=== PATIENT | female | born 2000 | race African-American/Black ===

== ENCOUNTER 2025-04-18 16:51 | Observation (INO) | payer OTHER, SELFPAY ==
[2025-04-18] VITALS (16 sets, daily range): BP systolic 110–111; BP diastolic 52–62; PULSE 80–122; O2SAT 98–100; BMI 32.5
--- OUTSIDE RECORDS SUMMARY | 2025-04-18 17:02 | XMS_ITS | Clinical Summary ---
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 Name Role Phone Chanel Gee DO Primary Care Provider [phone] Allergies No known active allergies Medications ondansetron (ZOFRAN) 4 mg tabletIndicatio ns:Nausea Take 1 tablet (4 mg total) by mouth every 8 (eight) hours as needed for nausea or vomiting 20 tablet 02/03/2025 Active PNV no.153/FA/om3/d hernandez/epa/fish ( GUMMIES ORAL) Take by mouth Ac tive prochlorperazin e (COMPAZINE) 5 mg tabletIndicatio ns:Nausea and Vomiting Take 1 tablet (5 mg total) by mouth every 8 (eight) hours 63 tablet 2 02/14/2025 Active vitamin ferrous fumarate-folic () 28 mg iron- 800 mcg tablet Take 1 tablet by mouth daily 30 tablet 11 03/18/2025 03/18/20 26 Active Active Problems Problem Noted Date Diagnosed Date Hyperlipidemia 12/31/2024 Insomnia due to other mental disorder 05/25/2023 Assessment & Plan (08/28/2024 8:13 AM CDT): Uncontrolled, possibly related to untreated anxiety and depression Declined medication, counseling, and/or referral to specialist for treatment of anxiety and depression Informed can take OTC melatonin or ashwagandha for sleep/anxiety Assessment & Plan (05/25/2023 8:12 AM AEROSPACE QUALITY ENGINEER): Chronicity and stability unknown, likely related to untreated anxiety and depression Encouraged to start sertraline prescribed at last visit for anxiety and depression Informed can also take melatonin 1-2 mg 1 hour prior to bedtime to facilitate sleep Polycystic ovary syndrome 03/27/2023 Prediabetes 02/24/2023 Overview (12/17/2024): A1C 5.7 on 02/23/2023 Moderate major depression, single episode 2022 Assessment & Plan (08/28/2024 7:25 AM CDT): Chronic, uncontrolled, previously prescribed sertraline, however never filled prescription Patient's PHQ-9 was 13, now 19 Discussed treatment options with patient that included counseling, medication/medication adjustment, and/or referral to psychiatry and/or psychology Declined counseling, medication, and referral to specialist/s Advised if suicidal ideation or thoughts of harming self or others, to go to ER and/or call [phone] for assistance Assessment & Plan (11/01/2023 12:46 PM CDT): Chronic, uncontrolled, previously prescribed sertraline, however never filled prescription Reviewed last PHQ-9=13 New prescription for sertraline 50 mg daily sent to pharmacy per request Advised if suicidal ideation or thoughts of harming self or others, to go to ER and/or call [phone] for assistance Assessment & Plan (05/25/2023 8:13 AM AEROSPACE QUALITY ENGINEER): Chronic, uncontrolled, improved PHQ-9 score, but has had suicidal thoughts since last seen, denies currently, did not start medication prescribed at last visit PHQ-9=13 , LILLY-7=21, previously 18 & 16 respectively Recommended starting sertraline, previously prescribed Encouraged to continue therapy Advised if suicidal ideation or thoughts of harming self or others, to go to ER and/or call [phone] for assistance, agreed to contract for safety Assessment & Plan (04/12/2023 4:59 AM AEROSPACE QUALITY ENGINEER): Chronic, stable, uncontrolled Reviewed PHQ-9=18 Recommended starting sertraline as previously recommended Advised if suicidal ideation or thoughts of harming self or others, to go to ER and/or call [phone] for assistance Recommended follow-up in 4 weeks, sooner if needed Assessment & Plan (03/14/2023 10:45 AM AEROSPACE QUALITY ENGINEER): Chronic, stable, uncontrolled, no on medications Started on sertraline 50 mg once daily Encouraged to pursue counseling through school, has appointment next week Advised if suicidal ideation or thoughts of harming self or others, to go to ER and/or call [phone] for assistance, agreed to contract for safety Assessment & Plan (02/15/2023 5:23 AM CDT): Chronicity and stability unknown, uncontrolled Reviewed PHQ-7=20 Discussed treatment options with patient that included counseling, medication/medication adjustment, and/or referral to psychiatry and/or psychology, not interested in medication at this time Recommended calling insurance for preferred providers covered under plan Advised if suicidal ideation or thoughts of harming self or others, to go to ER and/or call [phone] for assistance, agreed to contract for safety. LILLY (generalized anxiety disorder) 02/14/2023 Assessment & Plan (08/28/2024 7:27 AM CDT): Chronic, uncontrolled, previously prescribed sertraline, however never filled prescription Reviewed LILLY-7=18, previously 18 Discussed treatment options with patient that included counseling, medication/medication adjustment, and/or referral to psychiatry and/or psychology Assessment & Plan (11/01/2023 12:47 PM CDT): Chronic, uncontrolled, previously prescribed sertraline, however never filled prescription New prescription for sertraline 50 mg daily sent to pharmacy per request Assessment & Plan (05/25/2023 7:54 AM AEROSPACE QUALITY ENGINEER): Chronic, uncontrolled, worsened, did not start medication prescribed at last visit PHQ-9=13 , LILLY-7=21, previously 18 & 16 respectively Recommended starting sertraline, previously prescribed Encouraged to continue therapy Assessment & Plan (04/12/2023 5:00 AM AEROSPACE QUALITY ENGINEER): Chronic, stable, uncontrolled Reviewed LILLY-7=16 Recommended starting sertraline as previously recommended Recommended follow-up in 4 weeks, sooner if needed Assessment & Plan (03/14/2023 10:42 AM AEROSPACE QUALITY ENGINEER): Chronic, stable, uncontrolled, no on medications Started on sertraline 50 mg once daily Encouraged to pursue counseling through school, has appointment next week Assessment & Plan (02/15/2023 5:22 AM CDT): Chronicity and stability unknown Reviewed PHQ-7=19 Discussed treatment options with patient that included counseling, medication/medication adjustment, and/or referral to psychiatry and/or psychology, not interested in medication at this time Recommended calling insurance for preferred providers covered under plan Obesity (BMI 30-39.9) 11/03/2021 Assessment & Plan (12/17/2024 2:37 PM CDT): >>ASSESSMENT AND PLAN FOR CLASS 1 OBESITY DUE TO EXCESS CALORIES WITHOUT SERIOUS COMORBIDITY WITH BODY MASS INDEX (BMI) OF 34.0 TO 34.9 IN ADULT WRITTEN ON 11/01/2023 12:49 PM BY JOSEMANUEL MCGILL NP Chronic, worsened Encouraged to: Make healthy food choices, limiting intake of concentrated sweets, cholesterol, and saturated fat Monitor daily caloric intake and portion sizes Exercise most days of the week for a goal of at least 150 minutes of exercise per week Assessment & Plan (12/17/2024 2:37 PM CDT): >>ASSESSMENT AND PLAN FOR CLASS 1 OBESITY DUE TO EXCESS CALORIES WITHOUT SERIOUS COMORBIDITY WITH BODY MASS INDEX (BMI) OF 34.0 TO 34.9 IN ADULT WRITTEN ON 11/23/2023 8:13 AM BY JOSEMANUEL MCGILL NP Chronic,stable Encouraged to: Make healthy food choices, limiting intake of concentrated sweets, cholesterol, and saturated fat Monitor daily caloric intake and portion sizes Exercise most days of the week for a goal of at least 150 minutes of exercise per week Assessment & Plan (12/17/2024 2:37 PM CDT): >>ASSESSMENT AND PLAN FOR CLASS 1 OBESITY DUE TO EXCESS CALORIES WITHOUT SERIOUS COMORBIDITY WITH BODY MASS INDEX (BMI) OF 34.0 TO 34.9 IN ADULT WRITTEN ON 08/28/2024 8:13 AM BY JOSEMANUEL MCGILL NP Worsened Encouraged to: Make healthy food choices, limiting intake of concentrated sweets, cholesterol, and saturated fat Monitor daily caloric intake and portion sizes Exercise most days of the week for a goal of at least 150 minutes of exercise per week Assessment & Plan (11/03/2021 3:46 PM CDT): Obesity is unchanged. Discussed the patient's BMI. The BMI is above average. BMI management plan is completed. BMI Follow-up includes: nutrition counseling, exercise counseling and education provided. Estimated Date of Delivery Comme nts Yes 08/31/2025 Based on Ultraso und Resolved Problems Problem Noted Date Diagnosed Date Resolved Date Nausea 08/28/2024 12/17/2024 Assessment & Plan (08/28/2024 8:15 AM CDT): New problem, uncontrolled, states a possibility, however not laid on menses Will check serum HCG Started on Pepcid 20 mg twice daily Heartburn 08/28/2024 12/17/2024 Assessment & Plan (08/28/2024 8:15 AM CDT): New problem with uncontrolled symptoms Started on Pepcid 20 mg twice daily Epigastric pain 08/28/2024 12/17/2024 Assessment & Plan (08/28/2024 8:15 AM CDT): New problem with uncontrolled symptoms Started on Pepcid 20 mg twice daily Elevated blood sugar 03/14/2023 025 Assessment & Plan (08/28/2024 8:11 AM CDT): Uncontrolled, prescribed metformin by funeral home director, unclear for PCOS or elevated blood sugar or both, no longer taking Will monitor for stability Assessment & Plan (11/01/2023 12:48 PM CDT): Chronicity, stability unknown, prescribed metformin by funeral home director, previously on metformin, not taking Will monitor for stability Assessment & Plan (03/14/2023 10:48 AM AEROSPACE QUALITY ENGINEER): Chronicity, stability unknown, prescribed metformin by funeral home director Continued on metformin per gynecology Shortness of breath 02/15/2023 08/29/19 Assessment & Plan (03/14/2023 10:49 AM AEROSPACE QUALITY ENGINEER): Chronic, stable, controlled with albuterol MDI PRN Continued on albuterol MDI as directed as needed, instructed to keep track of use Assessment & Plan (02/15/2023 5:24 AM CDT): Chronic, stable, states occurs when sick or with exercise Started on albuterol MDI as directed as needed Referral made to pulmonology for further evaluation and management Dysfunctional uterine bleeding 02/15/2023 08/28/2024 Assessment & Plan (11/01/2023 12:48 PM CDT): Chronicity and stability unknown Continued on medroxyprogesterone prescribed by funeral home director Ordered labs for monitoring anemia/low iron Assessment & Plan (03/14/2023 10:41 AM AEROSPACE QUALITY ENGINEER): Recent onset, stability unknown Completed course of medroxyprogesterone prescribed by funeral home director Encourage to follow-up with funeral home director as recommended Assessment & Plan (02/15/2023 5:26 AM CDT): Recent onset, established with gynecology most recent exam morbidly over summer Encouraged to follow-up with funeral home director Need for vaccination 02/15/2023 025 Assessment & Plan (08/28/2024 8:10 AM CDT): Declined Gardasil and Bexsero vaccines Discussed screening/vaccination in depth and patient understands all risk and benefits associated with proposed therapies and currently declines, has been encouraged to call if changes mind. Iron deficiency anemia 02/15/202302/14 Assessment & Plan (12/17/2024 2:36 PM CDT): >>ASSESSMENT AND PLAN FOR ANEMIA WRITTEN ON 02/15/2023 5:28 AM BY JOSEMANUEL MCGILL NP Chronicity and stability unknown with mild anemia noted on review of lab work on 07/02/2022 (hemoglobin 11.8, normal hematocrit) Ordered CBC Assessment & Plan (12/17/2024 2:36 PM CDT): >>ASSESSMENT AND PLAN FOR IRON DEFICIENCY ANEMIA WRITTEN ON 08/28/2024 8:12 AM BY JOSEMANUEL MCGILL NP Uncontrolled, was on ferrous sulfate daily, no longer taking, dysfunctional bleeding addressed by Gynecology with Depo-Medrol and metformin for PCOS? No longer on Depo Medrol or taking metformin Will monitor for stability >>ASSESSMENT AND PLAN FOR ANEMIA WRITTEN ON 08/28/2024 8:12 AM BY JOSEMANUEL MCGILL NP Uncontrolled, was on ferrous sulfate daily, no longer taking, dysfunctional bleeding addressed by Gynecology with Depo-Medrol and metformin for PCOS? No longer on Depo Medrol or taking metformin Will monitor for stability Assessment & Plan (12/17/2024 2:36 PM CDT): >>ASSESSMENT AND PLAN FOR IRON DEFICIENCY ANEMIA WRITTEN ON 11/01/2023 12:47 PM BY JOSEMANUEL MCGILL NP Chronicity and stability unknown, previously on ferrous sulfate, has not been taking Will monitor for stability >>ASSESSMENT AND PLAN FOR ANEMIA WRITTEN ON 11/01/2023 12:49 PM BY JOSEMANUEL MCGILL NP Chronicity and stability, previously on ferrous sulfate Will monitor for stability Assessment & Plan (12/17/2024 2:36 PM CDT): >>ASSESSMENT AND PLAN FOR IRON DEFICIENCY ANEMIA WRITTEN ON 03/14/2023 1:41 PM BY JOSEMANUEL MCGILL NP Chronicity and stability unknown Continued on ferrous sulfate, most recent CBC (06/2022) with hemoglobin 11.8 >>ASSESSMENT AND PLAN FOR ANEMIA WRITTEN ON 03/14/2023 1:40 PM BY JOSEMANUEL MCGILL NP Chronicity and stability Continued on ferrous sulfate daily with a meal containing vitamin C Migraine without aura and wi thout status migrainosus, not intractable 02/14/2023 02/14/2025 Assessment & Plan (08/28/2024 8:09 AM CDT): Uncontrolled, prescribed Imitrex, did not help Continued on Imitrex as directed as needed, increased dose to 100 mg as directed, encouraged to use at first sign of migraine Reviewed common migraine triggers Assessment & Plan (03/14/2023 10:44 AM AEROSPACE QUALITY ENGINEER): Chronic, uncontrolled, prescribed Imitrex, has not had to use Continued on Imitrex as directed as needed Assessment & Plan (02/15/2023 5:23 AM CDT): Chronic, uncontrolled Started on Imitrex as directed as needed Encouraged to keep a headache log to help identify triggers, reviewed common triggers BMI 32.0-32.9,adult 07/22/2022 11/01/19 Assessment & Plan (05/25/2023 7:51 AM AEROSPACE QUALITY ENGINEER): Chronic, improved Encouraged to: Make healthy food choices, limiting intake of concentrated sweets, cholesterol, and saturated fat Monitor daily caloric intake and portion sizes Exercise most days of the week for a goal of at least 150 minutes of exercise per week Assessment & Plan (03/14/2023 10:39 AM AEROSPACE QUALITY ENGINEER): Chronic, stable Encouraged to monitor daily caloric intake and portion sizes and to exercise most days of the week, for a goal of at least 150 minutes of exercise per week Assessment & Plan (07/22/2022 8:02 AM CDT): Discussed the patient's BMI. The BMI is above average. BMI management plan is completed. BMI Follow-up includes: nutrition counseling, exercise counseling and education provided. Missed menses 07/22/2022 02/14/2023 Assessment & Plan (07/22/2022 10:54 PM CDT): Patient states she is 3 days late. UPT in the office was negative. Continue per education adviser Encounter for physical exami nation related to employment 07/22/2022 03/14/2023 Assessment & Plan (07/22/2022 10:54 PM CDT): Will complete form once tuberculosis/QuantiFERON gold labs are available. Form can be faxed a number that is provided BMI 32.0-32.9,adult 11/03/2021 07/23/19 23 Assessment & Plan (11/03/2021 3:46 PM CDT): Obesity is unchanged. Discussed the patient's BMI. The BMI is above average. BMI management plan is completed. BMI Follow-up includes: nutrition counseling, exercise counseling and education provided. Screening-pulmonary TB 11/03/202103/14 Assessment & Plan (07/22/2022 10:54 PM CDT): Discussed screening techniques including ppd versus QuantiFERON gold. She prefers the serum. Order provided Assessment & Plan (11/03/2021 10:04 PM CDT): QuantiFERON gold order provided. Will complete her form when this blood test is completed. Need for Tdap vaccination 11/03/2021 Assessment & Plan (11/03/2021 10:05 PM CDT): Updated in office today Annual physical exam 03/07/2021 08/2 025 Assessment & Plan (08/28/2024 7:45 AM CDT): Reviewed past and current medical history, surgical history, social history, family history, current medications, and allergies. The chart was updated to identify any changes in these areas. Assessment & Plan (03/14/2023 1:40 PM AEROSPACE QUALITY ENGINEER): Reviewed past and current medical history, surgical history, social history, family history, current medications, and allergies. The chart was updated to identify any changes in these areas. A ROS and PE were performed. Medications was presribed. Discussed well woman exam/cervical cancer screening, monthly breast self-exams, and recommended immunizations. Patient will follow-up in 4 weeks for further evaluation and management or sooner if needed. Assessment & Plan (11/03/2021 10:04 PM CDT): Encouraged healthy lifestyle, good nutrition and exercise. Encouraged Calcium and Vitamin D and weight bearing exercise for bone health. Reviewed immunizations Reviewed age appropirate screenings. Sore throat 02/04/2020 03/14/2023 Assessment & Plan (02/04/2020 2:49 PM CDT): Will order covid testing. Advised quarantining until results are available or symptoms resolve. Advised starting claritin every day and using tylenol q6h prn fever/body aches. Advised her to contact us in next 72h to let us know how she's feeling. We discussed scheduling annual physical when she is improved. Missed period 06/11/2019 02/14/2023 Assessment & Plan (06/11/2019 8:36 AM AEROSPACE QUALITY ENGINEER): test was negative, follow-up with PCP for further evaluation and management of menstrual cycle and to discuss control. Acute bronchitis due to othe r specified organisms 06/11/2019 08/28/2024 Assessment & Plan (11/23/2023 8:13 AM CDT): Ordered chest xray Supportive care measures discussed Strict return precautions given Assessment & Plan (06/11/2019 8:38 AM AEROSPACE QUALITY ENGINEER): Advised to use inhaler as directed as needed for symptoms of shortness of breath, wheezing, chest tightness, or coughing fits. Encouraged to sleep with head elevated at night and use a cool mist vaporizer. Advised can apply Vicks VapoRub and take Mucinex as directed as needed for cough. Acute non-recurrent pansinusitis 06/11/2019 02/14/2023 Assessment & Plan (06/11/2019 8:38 AM AEROSPACE QUALITY ENGINEER): Started on Omnicef 300 mg BID x 10 days and prednisone 20 mg BID x 5 days. Instructed to increase clear liquids, rest, and vitamin C in diet. Advised to go to ER if unable to keep medications or liquids down, if abdominal pain worsens, if having difficulty breathing, can't control fever, or develops new symptoms. Recommended follow-up with PCP if symptoms don't improve, worsen, or new symptoms develop and also to further discuss evaluation and management of menstrual cycle and control. Fever 06/11/2019 02/14/2023 Assessment & Plan (06/11/2019 8:30 AM AEROSPACE QUALITY ENGINEER): Rapid influenza test was negative, see treatment plan for acute bronchitis and acute non-recurrent pansinusitis. Cough 06/11/2019 03/14/2023 Assessment & Plan (02/15/2023 5:21 AM CDT): Chronic, stable, states occurs when sick or with exercise Started on albuterol MDI as directed as needed Referral made to pulmonology for further evaluation and management Assessment & Plan (02/04/2020 2:49 PM CDT): Will order covid testing. Advised quarantining until results are available or symptoms resolve. Advised starting claritin every day and using tylenol q6h prn fever/body aches. Advised her to contact us in next 72h to let us know how she's feeling. We discussed scheduling annual physical when she is improved. Assessment & Plan (06/11/2019 8:30 AM AEROSPACE QUALITY ENGINEER): Rapid influenza test was negative, see treatment plan for acute bronchitis and acute non-recurrent pansinusitis. PPD screening test 05/19/2019 Assessment & Plan (05/19/2019 8:14 PM AEROSPACE QUALITY ENGINEER): Placed in office today control counseling 05/19/201910/2024 Assessment & Plan (05/19/2019 8:13 PM AEROSPACE QUALITY ENGINEER): Reviewed with patient the control options including ocp, ring, patch, Nexplanon, DepoProvera, IUDs and condoms/barriers. Reviewed risks, benefits, alternatives, side effects and proper use. She is most interested in Nexplanon--will check benefits. Stressed condoms until the Nexplanon is placed which is when she is on her next period. Screening examination for ST D (sexually transmitted disease) 05/19/2019 12/17/2024 Assessment & Plan (05/19/2019 8:14 PM AEROSPACE QUALITY ENGINEER): Check labs Possible 05/19/2019 2 Assessment & Plan (05/19/2019 8:14 PM AEROSPACE QUALITY ENGINEER): UPT negative in office Physical exam, pre-employment 05/19/2019 08/28/2024 Assessment & Plan (11/01/2023 12:45 PM CDT): Physical performed and paperwork completed for pre-employment physical Assessment & Plan (05/19/2019 8:13 PM AEROSPACE QUALITY ENGINEER): Encouraged healthy lifestyle, good nutrition and exercise. Encouraged Calcium and Vitamin D and weight bearing exercise for bone health. Reviewed immunizations Reviewed age appropirate screenings. PPD placed. Will need to read in 48-72 hours. BMI 28.0-28.9,adult 01/15/2019 11/04/19 22 Assessment & Plan (05/19/2019 8:13 PM AEROSPACE QUALITY ENGINEER): Weight/BMI is in healthy range. Continue healthy lifestyle to maintain. Assessment & Plan (01/15/2019 7:37 AM CDT): Weight/BMI is in healthy range. Continue healthy lifestyle to maintain. Need for Menactra vaccination 01/15/2019 05/19/2019 Assessment & Plan (01/15/2019 8:43 PM CDT): Updated in office today. As per HPI encouraged and discussed Gardasil and they declined at this time. Documentation provided for her to take to school. Amenorrhea 12/04/2017 02/14/2023 Assessment & Plan (05/19/2019 8:12 PM AEROSPACE QUALITY ENGINEER): test negative. Recommend serum as getting STD test done. Other oysterman (current) drug therapy 02/05/2015 03/14/2023 Encounters Date Type Department Care Team Description 03/28/2025 Telephone [facility] [address] [place] [address] [address] [place] [phone] Chanel Gee DO Medical Records Request 03/28/2025 Telephone [facility] Medicine [address] [place] [address] [address] [place] [phone] Chanel Gee DO 03/18/2025 Orders Only [facility] Obstetrical Gynecology [address] [place] [phone] Nyla Watkins MD 03/13/2025 1:30 PM AEROSPACE QUALITY ENGINEER Office Visit [facility] Obstetrical Gynecology [address] [place] [phone] Roya Downing MD care, first , second trimester (Primary Dx) 02/15/2025 Results Follow-Up [facility] Obstetrical Gynecology [address] [place] [phone] Nyla Watkins MD Drugs of Abuse Screen, Urine with Reflex Confirmation, Trichomonas vaginalis PCR Urine, N. gonorrhoeae/C. trachomatis Amplification Urine, Additional followed-up results: 14 02/14/2025 11:19 AM CDT - 02/14/2025 11:59 PM CDT Hospital Encounter [facility] [address] [address] Encounter for supervision of normal in first trimester, unspecified Discharge Disposition: Discharge to home or self care 02/14/2025 11:15 AM CDT Lab [facility] [address] [address] Encounter for supervision of normal in first trimester, unspecified 02/14/2025 11:00 AM CDT Office Visit [facility] Obstetrical Gynecology [address] [place] [phone] Nyla Watkins MD Encounter for supervision of normal in first trimester, unspecified (Primary Dx); Obesity (BMI 30-39.9); Obesity affecting in first trimester, unspecified obesity type; History of anxiety 02/14/2025 10:15 AM CDT Clinical Support [facility] Obstetrical Gynecology [address] [place] [address] [place] [phone] 02/14/2025 9:30 AM CDT Ancillary Procedure [facility] Obstetrical Gynecology [address] [place] [phone] Establish gestational age, ultrasound 02/14/2025 Telephone [facility] Obstetrical Gynecology [address] [place] [address] [place] [phone] Quinn Parikh MD 02/05/2025 Telephone [facility] Medicine [address] [place] [address] [place] [phone] Chanel Gee DO Medical Question/Miscellaneou s 02/04/2025 2:15 PM CDT Office Visit [facility] Medicine [address] [place] [address] [place] [phone] Chanel Gee DO 10 weeks gestation of (Primary Dx); Nausea 01/31/2025 Orders Only [facility] Obstetrical Gynecology [address] [place] [address] [place] [phone] Nyla Watkins MD Establish gestational age, ultrasound (Primary Dx) 01/31/2025 Telephone [facility] Obstetrical Gynecology [address] [place] [phone] Quinn Parikh MD 01/31/2025 Telephone [facility] Medicine [address] [place] [address] [place] [phone] Chanel Gee DO Symptom Based Call 01/30/2025 Telephone [facility] Virtual Care [address] [place] [phone] Zee No virtual care appointment 01/30/2025 Nurse Triage [address] [place] [phone] Chanel Gee, from Last 3 Months Immunizations Immunization Administration Dates Next Due DTaP 12/15/2006, 5,2001,08/17,2001 Hep B, Unspecified 04/07/2002,2001, 002 HiB 07/10/2004, 2,2001,08/17 IPV 07/15/2006, 2,2001,06/12 Influenza, Quadrivalent, Spl it, Preservative Free, Intramuscular 02/14/2023 Influenza, Unspecified 01/29/2024(Deferr ed: Patient decision),01/23/2024(Deferred: Patient Refused),05/25/2022(Deferred: Patient Refused),01/22/2022(Deferred: Patient Refused),05/25/2021(Deferred: Patient Refused) MMR 07/15/2006,04/07/2002 Meningococcal MCV4P (Menactra) 01/15/2019,2012 PPD TEST 11/01/2023,05/13/2019 Pneumococcal Conjugate 7-Valent 07/10/2004 Tdap 11/03/2021,12/22/2012 Varicella 02/04/2016,04/07/2002 Medical History Medical History Date Comments Headache Depression Anxiety Family History Medical History Relation Name Comments No Known Problems Father Headache Mother Heart disease Mother Diabetes Paternal Grandfather Heart disease Paternal Grandfather Breast cancer Neg Hx Colon cancer Neg Hx Ovarian cancer Neg Hx Uterine cancer Neg Hx Relation Name Status Comments Father Alive Mother Alive Paternal Grandfather Social History Tobacco Use Types Packs/Day Years Used Date Smoking Tobacco: Never Smokeless Tobacco: Never Tobacco Cessation:Counseling Given: Not Answered Alcohol Use Standard Drinks/Week Comments Never 0 (1 standard drink = 0.6 oz pur e alcohol) AUDIT-C Answer Date Recorded Q1: How often do you have a drink containing alc ohol? Never 08/28/2024 Average Number of Drinks Not on file 025 Frequency of Binge Drinking Not on file 10/2024 PHQ-2 Answer Date Recorded PHQ-2 Total Score (If total score is 3 or more points, staff should administer the PHQ-9) 2 02/04/2025 PHQ-9 Answer Date Recorded PHQ-9 Total Score 4 02/04/2025 [place] Depression Scale Answer Date Recorded [place] Depression Scale Total 8 02/14/2025 The thought of harming myself has occurred to me . Never 02/14/2025 Personal Safety Answer Date Recorded Have you ever been in or are you currently in a harmful physical or emotional relationship or is someone making you feel afraid or unsafe? 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 Gender Identity Not on file Sexual Orientation Not on file Obstetrics History Para Term AB IAB SAB Ectopic Multiple Livin g Live Births 1 Date Outcome GA Total Labor Labor/2nd/3rd Weight Sex Type Anes PTL Marija A1 A5 Name Clin Current Summary Episode Dates Number of Fetuses Estimated Date of Delivery 02/14/2025 - Present (04/18/2025) 1 08/31/2025 (set by Samantha Rivera RN on 02/14/2025 based on Ultrasound on 02/14/2025) Dating Summary Based On VIVIAN [place] Diff Last Menstrual Period on 11/11/2024 (LMP Unknown ) Ultrasound on 02/14/2025 08/31/2025 Working GA:11w5d Overview and Plan :Amaro Support person:Darryl tom Delivery Plans Planned delivery method:Vaginal Overview Surveillance of EDC by 11 week US Labs O+/ -/-/-/HIV NR Measles and chicken pox non immune - needs MMR and varivax Genetics: NIPT LR Anatomy: 20 weeks GCT: 26-28 weeks 3rd trim CBC/HIV/RPR Tdap: 27+ weeks GBS: 36 weeks, or sooner if early delivery indicated COVID Vaccine: declined Social Barriers: none Mode of feeding: Method of contraception: Delivery Planning: TBD Vitals Pregravid Weight Height TWG (As of 04/18/2025) Pregrav id BMI 77.6 kg (171 lb) 160 cm (5' 3) 1.27 kg (2 lb 12.8 oz) 30.30 Notes Progress Notes - Office Visi t - 03/13/2025 - GA:15w4d 03/13/2025 - w4d - Roya Downing MD Return OB Visit 24 y.o. at 15w4d here for COLLEEN. Patient denies specific questions or concerns. Nausea improved. Denies cramping/vb/lof. Objective BP 124/76 (BP Location: Left arm, Patient Position: Sitting) Pulse 115 Ht 160 cm (5' 3) Wt 173 lb 12.8 oz (78.8 kg) LMP (LMP Unknown) SpO2 98% BMI 30.79 kg/m Body mass index is 30.79 kg/m . 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 Datinst T US (11 wk) Labs: O+/-, AA, 13.5/41>196, A1c 5.6%, HIV/HBV/HCV/RPR NR, UCx Neg, GC/CT/Trich neg, UDS neg, RI, Varicella/Measles NI, recommend pp vaccination Genetics: NIPT LR, XX Anatomy: Placenta: GCT: 3T labs: Tdap: GBS: COVID Vaccine Flu vaccine Social Barriers: Method of feeding: Method of contraception: Delivery Planning: to be discussed Pain management: Support: BMI 30: HgbA1c, reviewed increased risk for PreE, recommend dASA History of depression and anxiety: on medication last year, stopped as she has been feeling better IOB EPDS 8, GAD7 6 Nausea and vomiting in Recommend B6, unisom, scheduled compazine, PRN pepcid and PRN zofran RTC in 4 wks Roya Downing MD SPACE QUALITY ENGINEER Progress Notes - Clinical Ferrera pport - 02/14/2025 - GA:wd 02/14/2025 - d - Samantha Alvarez RN Pt c/o N/V, has little relief with Zofran. Dating US in office today, VIVIAN reviewed with pt. Pap UTD; STI urine sent to lab. PNL and NIPT ordered. OB call schedule and NOB packet reviewed, all questions answered. EPDS and GAD7 completed in office today. Progress Notes - Office Visi t - 02/14/2025 - GA:11w5d 02/14/2025 - wd - Latoya Watkins MD Initial OB Visit Date of Visit: 02/14/2025 10:37 AM Selene Huerta is a 24 y.o. at 11w5d by [facility] T who desires establishment of care for her . Her is currently complicated by: #BMI 30 #PCOS: does not know when this was diagnosed, was skipping some cycles, most recent HgbA1c 5.6% #HLD #Depression, LILLY, insomnia: has been on medication in the past, was on this in August 2023 #History of migraines: has not had them in a while Morning sickness? yes, both nausea and vomiting - vomiting 1-2 times per day - takes zofran every 8 hours or as needed - reports constipation Vaginal bleeding? no Planned ? no Desired ? yes Taking ? yes Taking other meds not yet cleared by OB? none Cats in household? no Occupation? Unemployed Dating: No LMP recorded (lmp unknown). Patient is . US Date: 02/14, Gest Age 11w5d => VIVIAN 08/31/2025 Obstetric History: OB History Para Term AB Living 1 SAB IAB Ectopic Multiple Live Births # Outcome Date GA Lbr Chema/2nd Weight Sex Type Anes PTL Lv 1 Current Genetic History: Screening negative [-] Mother's Age > 34 years [-] Sickle Cell Disease or Trait () [-] Thalasemia (Tajik, Belarusian, Medit or ; MCV <80) [-] Loco Sachs Disease (Episcopalian, Cajun, Spanish Surinamese) [-] Down's Syndrome [-] Neural Tube Defects (Meningomyelocele, Spina Bifida or Anencephaly) [-] Other Developmental Delay [-] Cystic Fibrosis [-] Hannah's Chorea [-] Muscular Dystrophy [-] Hemophilia [-] Other Heritable condition Medical History: Past Medical History: Diagnosis Date Anxiety Depression Headache No Known Allergies Surgical History: History reviewed. No pertinent surgical history. Family History: Family History Problem Relation Age of Onset Diabetes Paternal Grandfather Heart disease Paternal Grandfather No Known Problems Father Headache Mother Heart disease Mother Breast cancer Neg Hx Colon cancer Neg Hx Ovarian cancer Neg Hx Uterine cancer Neg Hx Social History: No drug, alcohol or tobacco use Physical Exam: Vitals:BP 114/78 Wt 171 lb (77.6 kg) LMP (LMP Unknown) BMI 30.29 kg/m General: Well appearing, pleasant female in NAD Lungs: Normal work of breathing Abdomen: soft, non-tender Extremities: Warm and well perfused Pelvic: declined Assessment and Plan: - has three RF for PreE, recommend dASA at 12 weeks - reviewed approach to managing n/v in - reviewed increased risk of depression/anxiety in Surveillance of Datinst T US (11 wk) Labs: ordered Genetics: ordered Anatomy: Placenta: GCT: 26-28 weeks 3T labs: Tdap: 27+ weeks GBS: 36 weeks, or sooner if early delivery indicated COVID Vaccine Flu vaccine Social Barriers: Method of feeding: Method of contraception: Delivery Planning: to be discussed Pain management: Support: BMI 30: HgbA1c, reviewed increased risk for PreE, recommend dASA History of depression and anxiety: on medication last year, stopped as she has been feeling better IOB EPDS 8, GAD7 6 Nausea and vomiting in Recommend B6, unisom, scheduled compazine, PRN pepcid and PRN zofran SAB precautions reviewed. RTC in 4 weeks Nyla Watkins MD Last Filed Vital Signs Vital Sign Reading Time Taken Comments Blood Pressure 124/76 03/13/2025 1:35 PM AEROSPACE QUALITY ENGINEER Pulse 115 03/13/2025 1:35 PM AEROSPACE QUALITY ENGINEER Temperature 36.2 C (97.2 F) 02/04/2025 2:58 PM CDT Respiratory Rate 17 11/10/2024 12:4 9 PM CDT Oxygen Saturation 98% 03/13/2025 1:35 PM AEROSPACE QUALITY ENGINEER Inhaled Oxygen Concentration - - Weight 78.8 kg (173 lb 12.8 oz) 03/13/2025 1:35 PM AEROSPACE QUALITY ENGINEER Height 160 cm (5' 3) 03/13/2025 1:35 PM AEROSPACE QUALITY ENGINEER Body Mass Index 30.79 03/13/2025 1:35 PM AEROSPACE QUALITY ENGINEER Plan of Treatment Health Maintenance Due Date Last Done Comments HPV Vaccines (1 - 3-dose series) 2016 Influenza Vaccine (#1) 2024 02/14/2023 Regular Well Visit/Exam 18-64 08/28/2025, 03/14/2023, 11/03/2021, Additional history exists Cervical Cancer Screening 10/12/2025 10/12/2022 Chlamydia and Gonorrhea (GC/ CT) Screening 02/14/2026 02/14/2025, 07/02/2022, 12/05/2017 Depression Screening 02/14/2026 02/14/2025, 02/04/2025, 12/31/2024, Additional history exists DTaP/Tdap/Td Vaccine (8 - Td or Tdap) 11/04/2031 11/03/2021, 12/22/2012, 12/15/2006, Additional history exists Hepatitis B Screening Completed 04/07/2002 , 2001, 2001 Pneumococcal vaccine <65 Completed 07/10/2004 Varicella Vaccines Completed 02/04/2016, 04/07/2002 Hepatitis C Screening Completed 02/14/2025, 025 Procedures Procedure Name Priority Date/Time Associated Diagnosis Comments PANORAMA TEST Routine 2:01 PM CDT Encounter for supervision of normal in first trimester, unspecified BLOOD SMEAR REVIEW Routine 02/14/2025 11:33 AM CDT Encounter for supervision of normal in first trimester, unspecified ANTIBODY SCREEN Routine 02/14/2025 11:33 AM CDT Encounter for supervision of normal in first trimester, unspecified ABO/RH Routine 02/14/2025 11:33 AM CDT Encounter for supervision of normal in first trimester, unspecified HEMOGLOBIN ANALYSIS BY ELECTROPHORESIS Routine 02/14/2025 11:33 AM CDT Encounter for supervision of normal in first trimester, unspecified TYPE AND SCREEN Routine 02/14/2025 11:33 AM CDT Encounter for supervision of normal in first trimester, unspecified HEMOGLOBIN A1C Routine 02/14/2025 11:33 AM CDT Encounter for supervision of normal in first trimester, unspecified CBC WITHOUT DIFFERENTIAL Routine 02/14/2025 11:33 AM CDT Encounter for supervision of normal in first trimester, unspecified MEASLES IGG ANTIBODY Routine 02/14/2025 11:33 AM CDT Encounter for supervision of normal in first trimester, unspecified VARICELLA ZOSTER ANTIBODY, IGG Routine 02/14/2025 11:33 AM CDT Encounter for supervision of normal in first trimester, unspecified RPR Routine 02/14/2025 11:33 AM CDT Encounter for supervision of normal in first trimester, unspecified RUBELLA IGG Routine 02/14/2025 11:33 AM CDT Encounter for supervision of normal in first trimester, unspecified HIV 1/2 ANTIBODY PLUS P24 ANTIGEN Routine 02/14/2025 11:33 AM CDT Encounter for supervision of normal in first trimester, unspecified HEPATITIS C ANTIBODY Routine 02/14/2025 11:33 AM CDT Encounter for supervision of normal in first trimester, unspecified HEPATITIS B SURFACE ANTIGEN Routine 02/14/2025 11:33 AM CDT Encounter for supervision of normal in first trimester, unspecified DRUGS OF ABUSE SCREEN, URINE WITH REFLEX CONFIRMATION Routine 02/14/2025 9:51 AM CDT Encounter for supervision of normal in first trimester, unspecified N. GONORRHOEAE/C. TRACHOMATIS AMPLIFICATION Routine 02/14/2025 9:51 AM CDT Encounter for supervision of normal in first trimester, unspecified TRICHOMONAS VAGINALIS PCR Routine 02/14/2025 9:51 AM CDT Encounter for supervision of normal in first trimester, unspecified URINE CULTURE Routine 02/14/2025 9:51 AM CDT Encounter for supervision of normal in first trimester, unspecified US OB UNDER 14 WEEKS W ENDOVAGINAL Schedule Routine, Read Routine (OP Routine) 02/14/2025 9:25 AM CDT Establish gestational age, ultrasound PAP ONLY Routine 10/12/2022 from Last 3 Months or Most Recently Relevant to Health Maintenance Results * PANORAAZ TEST (02/14/2025 2:01 PM CDT) REPORT SUMMARY LOW RISK 02/25/2025 2:39 PM AEROSPACE QUALITY ENGINEER [facility] Comment:LOW RISK REPORT NOTE See Notes 02/25/2025 2:39 PM AEROSPACE QUALITY ENGINEER [facility] GENDER OF FETUS Female 2:39 PM AEROSPACE QUALITY ENGINEER [facility] FRACTION 5.8% 02/25/2025 2:39 PM AEROSPACE QUALITY ENGINEER [facility] Comment: FETAL_RHD : status not assessed The patient is RHD positive by genotype and therefore, the status is not assessed. Reasons for this result type include Rh positive blood type or Rh negative blood type with Weak D, Partial D (e.g. DVI), or other rare RHD genotype. *Clinical management should be based upon the patient's Rh blood type result by routine serology. *A repeat specimen is not indicated. TRISOMY 21 RESULT TEXT Low Risk 02/25/2025 2:39 PM AEROSPACE QUALITY ENGINEER [facility] TRISOMY 21 AGE-BASED RISK TEXT (0.09%) 02/25/2025 2:39 PM AEROSPACE QUALITY ENGINEER [facility] TRISOMY 21 RISK SCORE TEXT <1/10,000 (<0.01%) 02/25/2025 2:39 PM AEROSPACE QUALITY ENGINEER [facility] TRISOMY 18 RESULT TEXT Low Risk 02/25/2025 2:39 PM AEROSPACE QUALITY ENGINEER [facility] TRISOMY 18 AGE-BASED RISK TEXT 1/2,484 (0.04%) 02/25/2025 2:39 PM AEROSPACE QUALITY ENGINEER [facility] TRISOMY 18 RISK SCORE TEXT <1/10,000 (<0.01%) 02/25/2025 2:39 PM AEROSPACE QUALITY ENGINEER [facility] TRISOMY 13 RESULT TEXT Low Risk 02/25/2025 2:39 PM AEROSPACE QUALITY ENGINEER [facility] TRISOMY 13 AGE-BASED RISK TEXT 17,826 (0.01%) 02/25/2025 2:39 PM AEROSPACE QUALITY ENGINEER [facility] TRISOMY 13 RISK SCORE TEXT <1/10,000 (<0.01%) 02/25/2025 2:39 PM AEROSPACE QUALITY ENGINEER [facility] MONOSOMY X RESULT TEXT Low Risk 02/25/2025 2:39 PM AEROSPACE QUALITY ENGINEER [facility] MONOSOMY X AGE-BASED RISK TEXT 1/255 (0.39%) 02/25/2025 2:39 PM AEROSPACE QUALITY ENGINEER [facility] MONOSOMY X RISK SCORE TEXT <1/10,000 (<0.01%) 02/25/2025 2:39 PM AEROSPACE QUALITY ENGINEER [facility] TRIPLOIDY RESULT TEXT Low Risk 07/2024 2:39 PM AEROSPACE QUALITY ENGINEER [facility] 22Q11.2 DELETION SYNDROME RESULT TEXT Low Risk 02/25/2025 2:39 PM AEROSPACE QUALITY ENGINEER [facility] 22Q11.2 DELETION SYNDROME POPULATION-BASED RISK TEXT 1/2,000 02/25/2025 2:39 PM AEROSPACE QUALITY ENGINEER [facility] 22Q11.2 DELETION SYNDROME RISK SCORE TEXT 1/3,100 02/25/2025 2:39 PM AEROSPACE QUALITY ENGINEER [facility] FOOTNOTES See Notes 02/25/2025 2:39 PM AEROSPACE QUALITY ENGINEER [facility] Comment: Testing Methodology DNA isolated from maternal blood, which contains placental DNA, is amplified at specific loci using a targeted PCR assay and is sequenced using a high- throughput sequencer. fraction is determined using a proprietary algorithm incorporating data from single nucleotide polymorphism-based (SNP-based) next-generation sequencing [Pergaeamon E et al. Obstet Gynecol. 2014 Nov;124(2 Pt 1):210-8]. If there is sufficient fraction, sequencing data is analyzed using a proprietary SNP- based algorithm to determine the copy number for chromosomes 13, 18, 21, X and Y. If ordered, specific microdeletions will be evaluated using similar methodology [Mare TOLBERT et al. Am J Obstet Gynecol. 2015 Mar;212(3):332.e1-9]. If the fraction is insufficient, an additional algorithm to determine whether there is an increased risk for triploidy, trisomy 18, and trisomy 13 may be utilized, known as fraction based risk assessment (FFBR) [Tennille et al. Ultrasound Obstet Gynecol 2019; 53:73-79]. If ordered on a vanishing twin , a proprietary analysis will be performed to differentiate between the viable/living fetus and the vanished fetus to allow for risk assessment of copy number of chromosomes 13,18, 21, X, Y, and specific microdeletions in the viable/living twin using the above described SNP- based algorithm. If ordered, and patient is RHD negative by genotype, RHD status will be evaluated using a proprietary algorithm if fraction is sufficient [Mariel Ruiz et al. Obstet Gynecol 2023;145:1?7]. However, some samples will not produce a result due to failure to meet the necessary quality thresholds. This test has been validated on women with a amaro, twin, vanishing twin, or egg donor of at least nine weeks gestation. A result will not be available for higher order multiples and multiple gestation pregnancies with an egg donor or surrogate, or bone marrow transplant recipients. Complete test panel is not available for twin gestations and pregnancies achieved with an egg donor or surrogate. For twin pregnancies with a fraction value below the threshold for analysis, a sum of the fractions for both twins will be reported. As this assay is a screening test and not diagnostic, false positives and false negatives can occur. High risk test results need diagnostic confirmation by alternative testing methods. Low risk results do not fully exclude the diagnosis of any of the syndromes nor do they exclude the possibility of other chromosomal abnormalities or defects, which are not a part of this test. Potential sources of inaccurate results include, but are not limited to, mosaicism, low fraction, limitations of current diagnostic techniques, or misidentification of samples. This test will not identify all deletions associated with each microdeletion syndrome. This test has been validated for deletions ?0.5 Mb within the 22q11.2 A-D region. This test has been validated on full region deletions only for 1p36 deletion syndrome, Cri-du-chat syndrome, Prader Willi syndrome and Angelman syndrome and may be unable to detect smaller deletions. Microdeletion risk score may be dependent upon fraction, as deletions on the maternally inherited copy are difficult to identify at lower fractions. Test results should always be interpreted by a clinician in the context of clinical and familial data with the availability of genetic counseling when appropriate. Disclaimers The extraction, library preparation, and sequencing of this test were performed by [facility] [id number] [place] [address] [address], [place] [address] (CLIA ID [id number]). The data analysis and reporting of this test were performed by [facility] [address], [place] [address] (CLIA ID [id number]). The performance characteristics of this test were developed by [facility].(CLIA ID [id number]). This test has not been cleared or approved by the U.S. Food and Drug Administration (FDA). These laboratories are regulated under CLIA as qualified to perform high-complexity testing. 2024 [facility]. All Rights Reserved. Please refer to the attached PDF report Reviewed By: Ivy Laird M.D., Ph.D., [facility], Senior School Social Worker [facility] Neonatal Nurse: Pedro Delatorre, Ph.D., [facility] IF THE ORDERING PROVIDER HAS QUESTIONS OR WISHES TO DISCUSS THE RESULTS, PLEASE CONTACT US AT [phone], option 2. Ask for the NIPT genetic counselor regional marketing director. Blood specimen (specimen) Venous blood specimen / Unknown 02/14/2025 2:01 PM CDT 02/20/2025 2:00 AM CDT us Nyla Watkins MD LAB GENETIC TESTING Final Result [facility] [address] [place] [address], [facility] * Blood smear review (02/14/2025 11:33 AM CDT) RBC morphology Consistent with RBC Indicies Comment:Testing performed by : [facility], [address] [place] [address]., [id number] Platelet morphology Normal KRYS Comment:Testing performed by : [facility], [address] [place] [address]., [id number] Platelet estimate Adequate KRYS DRISCOLL Comment:Testing performed by : [facility], [address] [place] [address]., [id number] Blood 02/14/2025 11:3 3 AM CDT 02/14/2025 12:51 PM CDT Nyla Watkins MD LAB BLOOD ORDERABLES Final Result Performing Organization Address City/[facility] Co de Phone Number KRYS [facility] [place] [address] * HIV 1/2 Antibody plus p24 Antigen Blood (02/14/2025 11:33 AM CDT) HIV 1/2 ab + p24 ag Nonreactive Nonreactive Comment:Nonreactive for HIV- 1 antigen and HIV-1/HIV-2 antibodies. No laboratory evidence of HIV infection. If acute HIV infection is suspected, consider testing for HIV-1 RNA. Current interpretive data was last revised on 21. Blood 02/14/2025 11:3 3 AM CDT 02/14/2025 2:47 PM CDT Nyla Watkins MD LAB MICROBIOLOGY - GENERAL ORDERABLES Final Result Performing Organization Address City/[facility] Co de Phone Number [place] [phone] [facility] [place] [address] * (ABNORMAL) Hemoglobin analysis by electrophoresis (02/14/2025 11:33 AM CDT) RBC 4.82 3.90 - 5.20 M/cumm Comment:Testing performed by : [facility], [address] [place] [address], [place]., [address] Hgb 13.5 11.9 - 15.5 g/dL KRYS DRISCOLL Comment:Testing performed by : [facility], [address] [place]., [address] MCV 83.6 81.3 - 96.4 fL KRYS DRISCOLL Comment:Testing performed by : [facility], [address] [place]., [address] Rdw 18.9(H) 11.1 - 14.9 % KRYS DRISCOLL Comment:Testing performed by : [facility], [address] [facility], [address] Hgb electrophoresis , interp Please see comment KRYS DRISCOLL Comment: Normal hemoglobin pattern for age Reviewed and signed by Yifan Mckeon MD 02/18/2025 Testing performed by: [facility], [address] [facility], [address] Hgb A 97.7 96.0 - 98.5 % KRYS DRISCOLL Comment:Testing performed by : [facility], [address] [facility], [address] Hgb A2 2.3 1.5 - 3.2 % KRYS DRISCOLL Comment:Testing performed by : [facility], [address] [facility], [address] Blood 02/14/2025 11:3 3 AM CDT 02/14/2025 4:03 PM CDT us Nyla Watkins MD LAB BLOOD ORDERABLES Final Result Performing Organization Address City/State/[facility] Co ct Phone Number KRYS [address] [facility] Department [place] [address] * Hepatitis C antibody Blood (02/14/2025 11:33 AM CDT) Hep C Ab Nonreactive Nonreactive Comment: Antibodies to HCV not detected. Does NOT exclude the possibility of recent exposure to HCV. Current interpretive data was last revised on 21 Interpretive Data Nonreactive: Antibodies to HCV not detected. Does NOT exclude the possibility of recent exposure to HCV. Equivocal: Equivocal for HCV antibodies. Supplemental molecular testing will be automatically performed to determine infection status in accordance with current CDC screening recommendations. Reactive: Positive for HCV antibodies. This may represent current or past HCV infection. Supplemental molecular testing will be automatically performed to determine current infection status in accordance with current CDC screening recommendations. Interpretive data was last revised on 2019. Blood 02/14/2025 11:3 3 AM CDT 02/14/2025 2:48 PM CDT Nyla Watkins MD LAB MICROBIOLOGY - GENERAL ORDERABLES Final Result Performing Organization Address City/[facility] Co de Phone Number [address] [id number] * (ABNORMAL) Measles IgG antibody Blood (02/14/2025 11:33 AM CDT) Measles IgG Nonreactiv e(A) Comment: Non-reactive: No detectable antibody to measles. Such individuals are presumed to be uninfected and susceptible to primary infection. Testing performed by: [facility], [address] [place] [address]., [address] Blood 02/14/2025 11:3 3 AM CDT 02/14/2025 3:56 PM CDT Result [facility] Nyla Watkins MD LAB MICROBIOLOGY - GENERAL ORDERABLES Final Result Performing Organization Address [facility] de Phone Number [address] [address] * ABO/Rh (02/14/2025 11:33 AM CDT) Pathologist [facility] ABO/Rh O Positive Comment:Testing performed by : [facility], [address] [place] [address]., [address] Blood 02/14/2025 11:3 3 AM CDT 02/14/2025 12:54 PM CDT Narrative [facility] - 02/14/2025 1:53 PM CDT Has the patient had Daratumumab or Isatuximab in the past 6 months?->Unknown Hx of or candidate for Bone Marrow/Stem Cell transplant?->No Nyla Watkins MD LAB BLOOD BANK TEST ORDERA BLES Final Result [address] [place] [address] * Rubella IgG antibody Blood (02/14/2025 11:33 AM CDT) Rubella IgG Reactive Reactive Blood 02/14/2025 11:3 3 AM CDT 02/14/2025 2:48 PM CDT Nyla Watkins MD LAB MICROBIOLOGY - GENERAL ORDERABLES Final Result Performing Organization Address City/[facility] Co de Phone Number [address] [place] [address] * RPR Blood (02/14/2025 11:33 AM CDT) RPR Nonreactive Nonreactive Comment:Testing performed by : [facility], [address] [place] [address] Blood 02/14/2025 11:3 3 AM CDT 02/14/2025 3:56 PM CDT Nyla Watkins MD LAB MICROBIOLOGY - GENERAL ORDERABLES Final Result Performing Organization Address City/[facility]/ZIP Co de Phone Number [address] [place] [address] * Hepatitis B Surface Antigen Blood (02/14/2025 11:33 AM CDT) HepBsAg Nonreactive Nonreactive Blood 02/14/2025 11:3 3 AM CDT 02/14/2025 2:48 PM CDT Nyla Watkins MD LAB MICROBIOLOGY - GENERAL ORDERABLES Final Result [address] [place] [address] * (ABNORMAL) CBC without differential (02/14/2025 11:33 AM CDT) [facility] Signature WBC 7.11 3.80 - 9.90 K/cumm Comment:Testing performed by : [address] [address] Hgb 13.4 11.9 - 15.5 g/dL KRYS Comment:Testing performed by : [address] [address] Hct 40.7 35.6 - 45.5 % KRYS Comment:Testing performed by : [address], [address] Plt 196 150 - 400 K/cumm KRYS Comment:Testing performed by : [address] [address] MPV 14.1(H) 9.1 - 12.3 fL KRYS Comment:Testing performed by : [address] [address] RBC 4.90 3.90 - 5.20 M/cumm KRYS Comment:Testing performed by : [address] [address] MCV 83.1 81.3 - 96.4 fL KRYS Comment:Testing performed by : [address] [address] MCH 27.3 27.1 - 33.3 pg KRYS Comment:Testing performed by : [address] [address] MCHC 32.9 32.3 - 35.7 g/dL KRYS Comment:Testing performed by : [address] [address] RDW CV 18.6(H) 11.1 - 14.9 % KRYS Comment:Testing performed by : [address] [address] RDW SD 56.2(H) 35.7 - 48.1 fL KRYS Comment:Testing performed by : [address], [address] NRBC abs 0.00 0.00 - 0.01 K/cumm [facility] Comment:Testing performed by : [address] [address] Blood 02/14/2025 11:3 3 AM CDT 02/14/2025 12:51 PM CDT Nyla Watkins MD LAB BLOOD ORDERABLES Final Result Performing Organization Address [facility] Co de Phone Number [address] [address] * Antibody screen (02/14/2025 11:33 AM CDT) Pathologist [facility] Tj, indirect, Gel Interpretation Negative ABSC Comment:Testing performed by : [address] [address] Blood 02/14/2025 11:3 3 AM CDT 02/14/2025 12:54 PM CDT Narrative KRSY - 02/14/2025 1:53 PM CDT Has the patient had Daratumumab or Isatuximab in the past 6 months?->Unknown Hx of or candidate for Bone Marrow/Stem Cell transplant?->No Nyla Watkins MD LAB BLOOD BANK TEST ORDERA BLES Final Result Performing Organization Address [facility] Co de Phone Number [address] [address] * (ABNORMAL) Varicella Zoster IgG antibody Blood (02/14/2025 11:33 AM CDT) Pathologist [facility] VZV IgG Nonreacti ve(A) Reactive Comment: Non-reactive: No detectable antibody to Varicella-zoster virus. Such individuals are presumed to be uninfected and to be susceptible to primary infection. Testing performed by: [facility], [address] [facility], [place]., [address] Blood 02/14/2025 11:3 3 AM CDT 02/14/2025 3:56 PM CDT Nyla Watkins MD LAB MICROBIOLOGY - GENERAL ORDERABLES Final Result KRYS [address] [place] [address] * Hemoglobin A1c (02/14/2025 11:33 AM CDT) Hgb A1C 5.6 4.0 - 5.6 % Comment:Testing performed by : [facility], [address] [place] [address]., [address] Estimated Average Glucose 114 mg/dL KRYS Comment: The ADA recommends reporting an estimated Average Glucose (eAG) with all Hemoglobin A1c results using the equation derived from a study of 507 normal and diabetic adults. Minority populations were underrepresented and children were not included. (Diabetes Care 31:1750-3010, 2008). The eAG is not equivalent to a fasting glucose. Testing performed by: [facility], [address] [place] [address]., [address] Blood 02/14/2025 11:3 3 AM CDT 02/14/2025 12:49 PM CDT Nyla Watkins MD LAB BLOOD ORDERABLES Final Result Performing Organization Address City/[facility] Co de Phone Number KRYS [facility] [place] [address] * N. gonorrhoeae/C. trachomatis Amplification Urine (02/14/2025 9:51 AM CDT) Pathologist [facility] C. trachomatis Not Detected [facility] Comment:Testing performed by : [facility], [address] [facility] [place]., [address] N. gonorrhoeae Not Detected KRYS DRISCOLL Comment: Interpretive Data This assay detects Chlamydia trachomatis and Neisseria gonorrhoeae by nucleic acid amplification testing (NAAT). This assay has been cleared by the [place] Food and Drug administration. The performance characteristics of this test have been verified by the [facility]. The performance characteristics of this test have not been evaluated in individuals less than 14 years of age. Current Interpretive Data was last revised on 2023. Testing performed by: [facility], [address] [place]., [address] Urine (None) 02/14/2025 9:51 AM CDT 02/14/2025 4:16 PM CDT Nyla Watkins MD LAB MICROBIOLOGY - GENERAL ORDERABLES Final Result KRYS [address] [facility] Department [place] [address] [facility] * Drugs of Abuse Screen, Urine with Reflex Confirmation (02/14/2025 9:51 AM CDT) [facility] Amphetamine, ur Not Detected CutOff 500ng/mL Comment: Interpretive Data - Amphetamines: Samples containing greater than 500 ng/mL d-methamphetamine or other cross-reacting amphetamine compounds are reported as positive. Amphetamine immunoassays are subject to significant false positive rates due to cross-reactivity of non-amphetamine drugs. Confirmatory testing required for definitive results. Current Interpretive Data was last reviewed 2022. Testing performed by: [address] [address] Barbiturates, ur Not Detected CutOff 200ng/mL KRYS Comment: Interpretive Data - Barbiturates: Samples containing greater than 200 ng/mL secobarbital or other cross-reacting barbiturate compounds are reported as positive. False positive and false negative results are possible. Confirmatory testing required for definitive results. Current Interpretive Data was last reviewed 2022. Testing performed by: [address] [address] Benzodiazepines, ur Not Detected CutOff 100ng/mL KRYS Comment: Interpretive Data - Benzodiazepines: Samples containing greater than 100 ng/mL nordiazepam or other cross-reacting compounds are reported as positive. False positive and false negative results are possible. Confirmatory testing required for definitive results. Current Interpretive Data was last reviewed 2022. Testing performed by: [address] [address] Cannabinoids, ur Not Detected CutOff 50 ng/mL [facility] Comment: Interpretive Data - Cannabinoids: Samples containing greater than 50 ng/mL delta-9 THC -COOH or other cross- reacting compounds are reported as positive. False positive and false negative results are possible. Confirmatory testing required for definitive results. Current Interpretive Data was last reviewed 2022. Testing performed by: [address] [address] Cocaine, ur Not Detected CutOff 150ng/mL [facility] Comment: Interpretive Data - Cocaine: Samples containing greater than 150 ng/mL benzoylecgonine or other cross- reacting compounds are reported as positive. False positive and false negative results are possible. Confirmatory testing required for definitive results. Current Interpretive Data was last reviewed 2022. Testing performed by: [address], [place]., [address] Fentanyl, Ur Not Detected CutOff 5 ng/mL [facility] Comment: Interpretive Data - Fentanyl: Samples containing greater than 1 ng/mL fentanyl or other cross-reacting fentanyl compounds are reported as positive. False positive and false negative results are possible. Confirmatory testing required for definitive results. Current Interpretive Data was last reviewed 2022. Testing performed by: [address] [address] Methadone, ur Not Detected CutOff 300ng/mL [facility] Comment: Interpretive Data - Methadone: Samples containing greater than 300 ng/mL d,l-methadone or other cross-reacting compounds are reported as positive. False positive and false negative results are possible. Confirmatory testing required for definitive results. Current Interpretive Data was last reviewed 2022. Testing performed by: [address] [address] Opiates, ur Not Detected CutOff 300ng/mL [facility] Comment: Interpretive Data - Opiates: Samples containing greater than 300 ng/mL morphine or other cross-reacting compounds are reported as positive. False positive and false negative results are possible. Confirmatory testing required for definitive results. Current Interpretive Data was last reviewed 2022. Testing performed by: [address], [place]., [address] Oxycodone, ur Not Detected CutOff 100ng/mL KRYS Comment: Interpretive Data - Oxycodone: Samples containing greater than 100 ng/mL oxycodone or other cross-reacting compounds are reported as positive. False positive and false negative results are possible. Confirmatory testing required for definitive results. Current Interpretive Data was last reviewed 2022. Testing performed by: [address] [address] Phencyclidine, ur Not Detected CutOff 25 ng/mL KRYS Comment: Interpretive Data - Phencyclidine: Samples containing greater than 25 ng/mL phencyclidine or other cross-reacting compounds are reported as positive. False positive and false negative results are possible. Confirmatory testing required for definitive results. Current Interpretive Data was last reviewed 2022. Testing performed by: [address] [address] Urine Creatinine 506 mg/dL KRYS Comment: Interpretive Data Urine Creatinine: < 10 mg/dL is extremely dilute = or > 10 but < 20 mg/dL is dilute = or > 20 mg/dL is normal Current Interpretive Data was last revised on 2017. Testing performed by: [address] [address] Urine 02/14/2025 9:51 AM CDT 02/14/2025 12:01 PM CDT Narrative KRYS - 02/14/2025 1:00 PM CDT Drug Screening is performed by immunoassay for medical purposes. If positive, confirmation testing will be performed for amphetamines, benzodiazepines, cocaine, fentanyl, methadone, opiates, oxycodone, and phencyclidine. us Nyla Watkins MD LAB URINE ORDERABLES Final Result KRYS [address] [facility] Department [place] [address] * Trichomonas vaginalis PCR Urine (02/14/2025 9:51 AM CDT) Trichomonas DNA Not Detected [facility] Comment: Interpretive Data This assay detects Trichomonas vaginalis by nucleic acid amplification testing (NAAT). This assay has been cleared by the [place] Food and Drug administration. The performance characteristics of this test have been verified by the [facility]. The performance of this test has not been evaluated in individuals less than 18 years of age. Current Interpretive Data was last revised on 2023. Testing performed by: [facility], [address] [place]., [address] Urine 02/14/2025 9:51 AM CDT 02/14/2025 4:16 PM CDT Nyla Watkins MD LAB MICROBIOLOGY - GENERAL ORDERABLES Final Result Performing Organization Address City/[facility] Co de Phone Number [place] [address] [facility] [place] [address] [facility] * Urine culture Urine, clean voided (02/14/2025 9:51 AM CDT) Report Final Report: Less than 100,000 colonies/mL (clinically insignificant growth based on current clinical standards) Comment:Testing performed by : [facility], [address] [place]., [address] Organism (CLINICALLY INSIGNIFICANT GROWTH KRYS Urine, clean voided 02/14/2025 9:51 AM CDT 02/14/2025 4:02 PM CDT Narrative KRYS - 02/15/2025 6:09 PM CDT Testing performed by [facility] ([phone]) Nyla Watkins MD LAB MICROBIOLOGY - GENERAL ORDERABLES Final Result [address] [place] [address] * US Ob Under 14 Weeks W Endovaginal (02/14/2025 9:25 AM CDT) Anatomical Region Laterality Modality Abdomen N/A Ultrasound 02/14/2025 9:27 AM CDT Impressions 02/14/2025 10:40 AM CDT Viable Amaro IUP noted. The CRL measured 49.2 mm, 11w 5d. Final VIVIAN based on this scan 08/31/2025 Cardiac motion was observed - FHR -163 bpm The adnexa appeared normal bilaterally. Both ovaries appear WNL. Narrative Procedure Note Nyla Watkins MD - 02/14/2025 IMPRESSION: Viable Amaro IUP noted. The CRL measured 49.2 mm, 11w 5d. Final VIVIAN based on this scan 08/31/2025 Cardiac motion was observed - FHR -163 bpm The adnexa appeared normal bilaterally. Both ovaries appear WNL. Result [facility] Nyla Watkins MD IMG OB US PROCEDURES Edite d * Pap Only (Cytology Component) (10/12/2022) Thin prep 10/12/2022 Result [facility] Historical Provider LAB CYTOLOGY ORDERABLES F inal Result from Last 3 Months or Most Recently Relevant to Health Maintenance Insurance [facility] CHO[facility] PLUS [facility]US [facility] PLUS Care Teams Rolled Oats Mill Operator Relationship Specialty Start Date End Date Chanel Gee DO [address] [place] [address] [place] [address] PCP - General Family Medicine 12/17/24
--- OUTSIDE RECORDS SUMMARY | 2025-04-18 17:02 | XMS_ITS | Encounter Summary ---
Author Organization [facility] Healthcare Address [address] [place] [address] Care Team Providers Care Mobile Developer Name Role Phone [place], Chanel Allen DO Primary Care Provider [phone] Encounter Details Date Type Department Care Team ([facility] st Contact Info) Description 02/15/2025 Results Follow-Up [facility] Medical Group Obstetrical Gynecology [address] [phone] Nyla Watkins MD [address] [address] Drugs of Abuse Screen, Urine with Reflex Confirmation, Trichomonas vaginalis PCR Urine, N. gonorrhoeae/C. 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
--- OUTSIDE RECORDS SUMMARY | 2025-04-18 17:02 | XMS_ITS | Encounter Summary ---
Author Organization [facility] Healthcare Address [address] [place] [address] Care Team Providers Care Excel Analyst Name Role Phone Chanel Gee DO Primary Care Provider [phone] Reason for Visit * Reason Onset Date Comments Medical Records Request 03/28/2025 Encounter Details Date Type Department Care Team (Late st Contact Info) Description 03/28/2025 Telephone [facility] Medical [facility] Family Medicine [address] [place] [phone] Chanel Gee DO [address] [place] [address] Medical Records Request Social History Tobacco Use Types Packs/Day Years [...] Date Recorded PHQ-9 Total Score 4 02/04/2025 [place] Depression Scale Answer Date Recorded [place] Depression Scale Total 8 02/14/2025 The thought [...] on file 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 Lilia Rosario CORPORATE DEVELOPMENT ANALYST-PHYSICIAN PRACTICE ADMINISTRATOR Date Needed: SHIRIN Delivery Method: Fax Fax number to use for return of records: [phone] Additional Comments/Concerns: pt has appt on 03/31/25. Please fax when able. Does the message need to be routed? Yes-Action Needed ICAL PHARMACY MANAGER documented in this encounter Plan of Treatment Not on file documented as of this encounter Visit Diagnoses Not on filedocumented in this encounter Care Teams Excel Analyst Relationship Specialty Start Date End Date Chanel Gee DO [address] [facility] [address] [place] [address] [place] [address] PCP - General Family Medicine 12/17/24 documented as of this encounter
--- OUTSIDE RECORDS SUMMARY | 2025-04-18 17:02 | XMS_ITS | Data Portability ---
Author Organization [employer] , [facility] Address [address] [place] [address] Care Team Providers Care Photographer Name Role Phone [facility] Welt Butter Hand Assessment No assessment recorded. Plan of Treatment Reminders Order Date Submit Date Provider Last Modified By Organization Details Last Modified Time Details Appointments None recorded. Lab bacterial vaginosis + vaginitis panel, vaginal 2023 024 [facility], [address] [place], [address], 4 14:29:56 test, urine 2023 024 [email or web address] [facility], [address] [place], [address], 4 10:01:49 hemoglobin A1c, QN, blood 2023 024 [facility], [address] [place], [address], 4 12:01:48 bacterial vaginosis + vaginitis panel, vaginal 2023 024 [facility], [address] [place], [address], 4 09:33:33 test, urine 2023 024 [facility], [address] [place], [address], 4 20:13:18 unlisted lab - anti-crocker ricarda hormone (amh), female 2022 023 [facility], [address] [place], [address], 16:54:16 Referral None recorded. Procedures None recorded. Surgeries None recorded. Imaging US, transvagina l 2022 023 [email or web address] Not available 13:12:57 Medication Orders medroxyprog esterone 150 mg/mL intramuscul ar suspension 2023 024 [email or web address] [id number], [address] [place], [place], [id number], 14:51:33 metformin 850 mg tablet 2022 023 [email or web address] [facility] #[id number], [address] [place], [place], [id number], 14:51:16 Patient TargetsNo targets recorded. Patient Instructions Encounter Date Encounter Id Patient Instructions Last Modified By Organization Details Last Modified Time 07/25/2023 [id number] -Reviewed depo injection time frame -discussed using back-up for 2 weeks after depo start - reviewed possible side effects such as irregularities in bleeding, intermittent spotting, and complete absence of menses. - cautioned pt regarding weight gain d/t increased appetite/cravings; recommended lean protein, fruits, vegetables for bulk of diet. Limit high sugar/high carb foods. Exercise at least 3-5 days weekly including cardio & weight-lifting exerices. [email or web address] Not available 07/25/2023 13:54:32 08/10/2023 [id number] vaginitis: care instructions [email or web address] Not available 08/10/2023 15:30:40 Reason for Referral None Reported. Results Created Date Observation Date Name Description Value Unit Range Abnormal Flag Note LastModifiedBy Organization Detail LastModifiedTime 02/28/20 23 02/27/2023 TESTO STERO NE, TOTAL , MS testosterone , total, MS 46 NG/dL 2-45 high For addit ional infor aracely boyle refer to https ://ed ucati on.qu Equals6. com/f aq/To Jonathan giraldo MSM S (This link is being provi ded for infor shashi nal/e ducat ional purpo ses only. ) (Note ) This test was devel oped and its kervin tical perfo rmanc e dora cteri stics have been deter mined by [employer]. It has not been clear ed or appro xenia by the FDA. This assay has been valid ated pursu ant to the CLIA regul ation s and is used for clini bassam purpo ses. MDF med fustom n [address] [facility] [address] [facility] [address] [phone] Ej arrieta MD NO COLLE CTION DATE RECEI XENIA. WE HAVE USED THE DATE THE SPECI MEN WAS RECEI XENIA BY THIS LABOR ATORY THE COLLE CTION DATE. IF THIS IS INCOR RECT, PLEAS E CONTA CT CLIEN T SERVI ARIANNE. PHONE NUMBE R: [phone] Not Available [facility] [id number] [place] [address], [address], 02/27/2023 13:51:11 03/31/20 23 03/31/2023 ANTI- MULLE RENETTA HORMO NE (AMH) , FEMAL E anti-mulleri an hormone (amh), female 18.46 NG/mL 1.02-1 4.63 high NO COLLE CTION DATE RECEI XENIA. WE HAVE USED THE DATE THE SPECI MEN WAS RECEI XENIA BY THIS LABOR ATORY THE COLLE CTION DATE. IF THIS IS INCOR RECT, PLEAS E CONTA CT CLIEN T SERVI ARIANNE. PHONE NUMBE R: [phone] Not Available [facility] [address] [place], [address], 03/31/2023 16:54:16 07/26/19 24 07/26/2023 pregn [email or web address] test, urine HCG negati ve Not Available [facility] [address] [place], [address], 07/26/2023 10:04:38 08/10/19 24 08/11/2023 HEMOG LOBIN A1C hemoglobin A1C 5.6 % <5.7 normal The refer ence range for HbA1c is indic ated in the table below . Sugge sted Diagn osis =6.5% Consi stent with diabe leif 5.7 6.4% Consi stent with incre ased risk for diabe leif (pred iabet ic) <5.7% Consi stent with the absen ce of diabe leif Not Available [facility] [address] [place] [address], [address], 08/11/2023 12:01:48 08/10/19 24 08/15/2023 VAGIN ITIS PLUS STD PANEL bacterial vaginosis BV neg negati ve normal Not Available [facility] [address] [place] [address], [address], 08/16/2023 09:33:33 08/10/19 24 08/15/2023 VAGIN ITIS PLUS STD PANEL audrey species C. spp POS negati ve abnormal Not Available [place] [facility] [address] [place] [address], [address], 08/16/2023 09:33:33 08/10/19 24 08/15/2023 VAGIN ITIS PLUS STD PANEL audrey glabrata C. gla neg negati ve normal Not Available [email or web address], [address], 08/16/2023 09:33:33 08/10/19 24 08/15/2023 VAGIN ITIS PLUS STD PANEL trichomonas vaginalis CV/TV TRICH neg negati ve normal Not Available [email or web address], [address], 08/16/2023 09:33:33 08/10/19 24 08/15/2023 VAGIN ITIS PLUS STD PANEL chlamydia trachomatis CT neg negati ve normal This repor t is inten ded for us in clini bassam monit oring and manag ement [facility]. It is not inten ded for use in medic al-le gal appli catio n. Not Available [facility] [address] [place], [address], 08/16/2023 09:33:33 08/10/19 24 08/15/2023 VAGIN ITIS PLUS STD PANEL neisseria gonorrhoeae GC neg negati ve normal This repor t is inten ded for us in clini bassam monit oring and manag ement of [facility]. It is not inten ded for use in medic al- gal appli catio n. Not Available [address], [address], 08/16/2023 09:33:33 04/18/20 24 04/19/2024 VAGIN ITIS PLUS STD PANEL bacterial vaginosis BV neg negati ve normal Not Available [facility] [address] [place] [address], [address], 04/19/2024 14:29:56 04/18/20 24 04/19/2024 VAGIN ITIS PLUS STD PANEL audrey species C. spp POS negati ve abnormal Not Available [facility] [address] [place] [address], [address], 04/19/2024 14:29:56 04/18/20 24 04/19/2024 VAGIN ITIS PLUS STD PANEL audrey glabrata C. gla neg negati ve normal Not Available [facility] [address] [place], [address], 04/19/2024 14:29:56 04/18/20 24 04/19/2024 VAGIN ITIS PLUS STD PANEL trichomonas vaginalis CV/TV TRICH neg negati ve normal Not Available [facility] [address] [place] [address], [address], 04/19/2024 14:29:56 04/18/20 24 04/19/2024 VAGIN ITIS PLUS STD PANEL chlamydia trachomatis CT neg negati ve normal This repor t is inten ded for us in clini bassam monit oring and manag ement of patie nts. It is not inten ded for use in medic al-le gal appli catio n. Not Available [facility] [address] [place], [address], 04/19/2024 14:29:56 04/18/20 24 04/19/2024 VAGIN ITIS PLUS STD PANEL neisseria gonorrhoeae GC neg negati ve normal This repor t is inten ded for us in clini bassam monit oring and manag ement of patie nts. It is not inten ded for use in medic al-le gal appli catio n. Not Available [address], [address], 04/19/2024 14:29:56 04/18/20 24 04/18/2024 pregn bhupendra test, urine HCG negati ve Not Available [facility] [address] [place], [address], 04/18/2024 09:54:12 03/29/20 23 03/28/2023 US, trans vagin al No observ ation record ed. [email or web address] Jami [address], [place], [address], 03/30/2023 12:45:33 Result Notes None recorded. Problems Name Problem SNOMED Code Status Onset Date Resolution Date Notes Provider Name and Address Organization Details Recorded Time Prediabetes 669255491 Active 2022 A1C 5.7 on 023 ELHAM ALDANA-BC [address] [facility], [place], [address], [facility] IV 3 12:28:24 Polycystic ovary syndrome 978669748 Active 2022 ELHAM ALDANA- [address] [place], [address], [facility] IV 3 16:07:24 Problem Notes None recorded. Procedures Surgical History Date Name Laterality Status Provider Name and Address Organization Details Recorded Time 4 Depo Provera Injection completed Mony Melton [place] - [facility] 07/26/2023 10:04:14 4 Nexplanon Insertion cancelled Mony Miller [facility] 06/12/2023 12:53:03 3 Nexplanon Insertion cancelled ALEXANDRA CHEEK DO [address] [facility], [place], [address], [facility] IV 01/14/2023 20:04:51 3 Date of Last Pap Smear completed Debbie Hannon [facility] IV 02/23/2023 15:28:48 Imaging Results None recorded. Procedure Notes None recorded. Medical Equipment None Reported. Allergies No known drug allergies Medications Name Sig Start Date Stop Date Status Note LastModified by Organization Details LastModified Time medroxyprog esterone 10 mg tablet TAKE 1 TABLET BY MOUTH THREE TIMES DAILY FOR 7 DAYS 03/28 completed Not Available Not Available Not Available metformin 500 mg tablet 08/09 completed Not Available Not Available Not Available fluconazole 150 mg tablet TAKE 1 TABLET BY MOUTH EVERY 3 DAYS FOR 2 DOSES active Not Available Not Available No t Available sumatriptan 25 mg tablet 04/18 completed Not Available Not Available Not Available prednisone 20 mg tablet TAKE 2 TABLETS BY MOUTH EVERY DAY FOR 5 DAYS 05/16 completed Not Available Not Available Not Available metformin 850 mg tablet TAKE 1 TABLET BY MOUTH TWICE DAILY FOR 31 DAYS 08/09 completed Not Available Not Available Not Available metronidazo le 500 mg tablet 10/11 completed Not Available Not Available Not Available amoxicillin 875 mg tablet TAKE ONE TABLET BY MOUTH TWICE DAILY UNTIL ALL TAKEN 10/11 completed Not Available Not Available Not Available ibuprofen 200 mg tablet 08/09 completed Not Available Not Available Not Available albuterol sulfate HFA 90 mcg/actuati on aerosol inhaler INHALE 2 PUFFS BY MOUTH EVERY 6 HOURS NEEDED FOR WHEEZING 08/09 completed Not Available Not Available Not Available ondansetron 4 mg disintegrat ing tablet 08/09 completed Not Available Not Available Not Available sertraline 50 mg tablet 04/18 completed Not Available Not Available Not Available medroxyprog esterone 150 mg/mL intramuscul ar suspension ADMINISTE R 1 ML IN THE MUSCLE EVERY 3 MONTHS 08/09 completed Not Available Not Available Not Available azithromyci n 500 mg tablet TAKE 2 TABLETS BY MOUTH DAILY 05/16 completed Not Available Not Available Not Available FeroSul 325 mg (65 mg iron) tablet Take 1 tablet every day by oral route. 08/09 completed Not Available Not Available Not Available 28 mg iron-800 mcg tablet Take 1 tablet every day by oral route. 05/16 completed Not Available Not Available Not Available Vitals Date Recorded Body height Body mass index (BMI) Body weight Body temperature Systolic And Diastolic Provider Name and Address Organization Details Last Updated DateTime 07/25/2023 154.94 cm 33.6 kg/m2 08283.4 4 g 98 [degF] 120/76 mm[Hg] Vibha Quach [facility] 4 13:43:00 Date Recorded Body height Body temperature Body mass index (BMI) Body weight Systolic And Diastolic Provider Name and Address Organization Details Last Updated DateTime 08/10/2023 154.94 cm 98 [degF] 35.5 kg/m2 33119.3 7 g 110/80 mm[Hg] Gwendolyn Rosario [facility] 4 14:54:42 Date Recorded Body height Body mass index (BMI) Body weight Body temperature Systolic And Diastolic Provider Name and Address Organization Details Last Updated DateTime 03/28/2023 154.94 cm 34.8 kg/m2 45361 g 97.4 [degF] 112/72 mm[Hg] Kaylyn Adams [facility] 3 15:49:01 Date Recorded Body height Body mass index (BMI) Body weight Systolic And Diastolic Provider Name and Address Organization Details Last Updated DateTime 04/18/2024 154.94 cm 37 kg/m2 94881.1 g 116/84 mm[Hg] Marcy Michael [facility] 04/18/2024 09:48:24 Social History Question Answer Notes LastModified by Organizat ion Details LastModified Time Tobacco Smoking Status Never Smoker Debbie Hannon null, [facility] 05/18/2021 12:53:53 If You Are , What Was Your Level Of Alcohol Consumption Prior To ? None [email or web address] Information not available 08/10/2023 How Many Years Have You Consumed Alcohol? 0 Information not available 11/23/2022 Are You Blind Or Do You Have Difficulty Seeing? Yes Pt Wear Glasses [email or web address] Information not available 05/16/2022 Are You Deaf Or Do You Have Serious Difficulty Hearing? No [email or web address] Information not available 05/16/2022 What Type Of Diet Are You Following? REGULAR [email or web address] Information not available 05/18/2021 What Is The Highest Grade Or Level Of School You Have Completed Or The Highest Degree You Have Received? [id number] [email or web address] Information not available 08/10/2023 How Many Children Do You Have? 0 [email or web address] Information not available 08/10/2023 What Is Your Relationship Status? Domestic Partner [email or web address] Information not available 05/18/2021 Are You Sexually Active? Yes [email or web address] Information not available 05/18/2021 Sex: Female Functional Status Question Answer Note LastModified by Organizat ion Details LastModified Time How many times per week do you consume alcohol? Less than 1 time per week [email or web address] Information not available 08/10/2023 Do you use any illicit or recreational drugs? No Information not available 11/23/2022 Do you or have you ever used any other forms of tobacco or nicotine? No Information not available 11/23/2022 What is your level of alcohol consumption? Occasional Information not available 11/23/2022 Are you currently employed? Yes [email or web address] Information not available 10/11/2022 Do you or have you ever used e-cigarettes or vape? Never used electronic cigarettes [email or web address] Information not available 05/18/2021 What is your exercise level? Occasional Information not available 11/23/2022 Mental Status None recorded. Family History Relationship Description Onset Age of this Age Resolved Age Notes LastModified by Organization Details LastModified Time Father No current problems or disability [email or web address] Not available 07/09 15:35:21 Mother No current problems or disability [email or web address] Not available 07/09 15:35:21 Medical History Condition Response Other Cancer N High Blood Pressure N Colon Cancer N Cytomegalovirus N Hyperthyroidism N MRSA N Breast Cancer N Herpes (HSV) N Blood Transfusion N Lung Cancer N Depression Y Hypothyroidism N Incontinence N Panic Attacks N Neurological Disorder N Deep Vein Thrombosis N Anxiety Disorder N Autoimmune disease N Arthritis N Tuberculosis/Positive PPD N Shingles N Polycystic Ovarian Syndrome N Infertility N Cervical Cancer N Hematuria N Chlamydia N Stroke N Varicosities N Seasonal allergies N Crohn's Disease N Alzheimer's/Dementia N COPD/Emphysema N Endometriosis N HPV/Genital Warts N IBS (Irritable Bowel Syndrome) N History of Abnormal Pap N High Cholesterol N Liver Disease N Kidney Infection N Fibromyalgia N Ulcer N Kidney Disease N HIV N Gallbladder disease N Sickle Cell Disease/Trait N Von Willebrand disease N ADD/ADHD N Eating Disorder N Anemia N Diabetes Mellitus (non-insulin dependent ) N Multiple Sclerosis N Ovarian Problems N Gonorrhea N Frequent Urinary Tract infections N Osteopenia N Headaches/migraines Y GERD (reflux) N Ovarian Cancer N Diabetes (insulin dependent) N Seizures/Epilepsy N Breast Problems N Fibroids N Asthma N Heart Attack N Lupus N Endometrial Cancer N Rubella N Blood Clotting Disorder N Bipolar Disorder N Diabetes Mellitus (during ) N Ulcerative Colitis N Hepatitis N Heart Disease N Pulmonary Embolism N RPR N Chicken Pox N Osteoporosis N Gynecological History Statement/Question Response Flow Moderate Date of LMP 03/30/2024 HPV Vaccine N Duration of Flow (days) 6 Most Recent Mammogram Current Control Method None Age at Menarche 14 Date of Last Colonoscopy Most Recent Bone Density Frequency of Cycle (Q days) 26 Date of Last Pap Smear 10/12/2022 Obstetrics History GPAL:G 0 P 0 0 0 0 Type Value Multiple Births 0 Full Term 0 Induced 0 Spontaneous 0 Premature 0 Living 0 Ectopics 0 Total 0 Past Encounters Encounter ID Performer Location Encounter Start Date Encounter Closed Date Diagnosis/Indication Diagnosis SNOMED-CT Code Diagnosis ICD10 Code Diagnosis IMO Codes Diagnosis Note [id number] Beth Goetz MD [facility] h [address] [facility] [place] [address] 05/18/2021 12:43:20 05/18/2021 17:35:51 Vaginal discharge 273616859 N89.8 N76.0 Contracept ion care management 458872315 Z30.9 patient declines contracept ion stating she is persuing [id number] OZIEL JOYA, [facility] [address] [place] [address] 07/09/2021 15:20:22 07/12/2021 09:53:17 Disorder of menstruation 097388725 N92.6 Discussed possibilit y of chemical , late menstruati on. RTC PRN needs or for annual or +UPT in future. TTC and discussed timed intercours e, preseed, OPK interpreta tion [id number] Meggan Shepard, [facility] [address] [place] [address] 05/16/2022 15:05:22 05/16/2022 16:10:11 Reproductive care management 384507936 Z31.81 Recommend daily vitamins. Increase intercours e to 3-4 times weekly. Track intercours e, menses, and ovulation. [id number] ROGELIO NEFF, [facility] [address] [place] [address] 10/12/2022 12:22:16 10/12/2022 16:51:26 Menstrual period late 09616128 N92.6 --Discusse d the various causes of abnormal uterine bleeding. Including: polyps, fibroids, hyperplasi a, atypia, anovulatio n, etc.--Revi ewed the typical evaluation with labs and TVUS. Will continue to monitor period x 3 months.--D iscussed the possibilit y of endometria l biopsy. Biopsy procedure reviewed in detail.--R ecommended NSAID to help with cramping/b leeding.-- Briefly discussed the options available for treatment (depending on the results of evaluation ) such as hormonal treatment (OCPs, progestins ), Mirena, endometria l ablation, and surgery. Gynecologi c examination 49053989 Z01.419 Screening for malignant neoplasm of cervix 864377377 Z12.4 Contracept ion care education 492779678 Z30.09 Contracept ion education 146700729 Z30.09 Contracept quan counseling : Discussed options including OCPs, NuvaRing, Nexplanon, hormonal and copper IUDs. Discussed risks, efficacy, noncontrac eptive benefits, and side effects of each option, including risk of VTE with hormonal contracept ion and uterine perforatio n, expulsion, infection with IUD. Acute vaginitis 58441568 N76.0 [id number] Bert Molina [facility] [address] [place] [address] 11/23/2022 12:11:47 11/23/2022 14:31:46 Contraception care management 365749510 Z30.9 *Contracep tive counseling : Discussed control options, including OCPs., depo-prove ra, NuvaRing, Nexplanon, hormonal and copper IUDs.*Disc ussed risks, efficacy, non-contra ceptive benefits, and side effects of each option,inc luding risk of VTE with hormonal contracept ion and uterine perforatio n, expulsion, infection with IUD. Selene wants the Nexplanon. Patient case to orderWi call to schedule insertion appointmen t when the device is available [id number] ROGELIO NEFF [address] [address] 02/23/2023 15:22:39 02/24/2023 11:01:35 Abnormal uterine bleeding 2238524109 9100 N93.9 Will need to RTC for fasting labs and STI panel. Pt is bleeding too much today. Menorrhagia 371599575 N9 2.0 [id number] ROGELIO NEFF [facility] [address] [place] [address] 03/28/2023 14:32:18 03/29/2023 12:25:08 Abnormal uterine bleeding 9172933220 9100 N93.9 TVUS normal uterus and endometriu m. No fluid or masses seen. Bilateral ovaries multiple prominent follicles. Prediabetes 804508384 R7 3.03 A1C 5.7 Reproducti ve care management 035228559 Z31.9 Pt requesting testing. Education given on routine AMH checks. Pt voiced she would like this done. Polycystic ovary syndrome 212436268 E28.2 New dx Diet education 91816205 Z71.3 [id number] Kayleen Valenzuela CNM [facility] [address] [place] [address] 07/25/2023 13:17:43 07/25/2023 13:54:57 Initiation of depot contraception done 6634617993 45973 Z30.013 -Reviewed depo injection time frame -discussed using back-up for 2 weeks after depo start - reviewed possible side effects such as irregulari ties in bleeding, intermitte nt spotting, and complete absence of menses. - cautioned pt regarding weight gain d/t increased appetite/c ravings; recommende d lean protein, fruits, vegetables for bulk of diet. Limit high sugar/high carb foods. Exercise at least 3-5 days weekly including cardio & weight-lif ting exerices. - discussed possibilit y of reversible bone loss - rec calcium rich diet such as dairy products, enriched orange juice, fish such as sardines, and supplement ation. Bulk of calcium should come from diet but ok to supplement as well. Rec Vit D and fish oil. -No absolute or relative contraindi cations to depo use identified - f/u in 3 months for next administra tion [id number] Kayleen Valenzuela CNM [facility] [address] [place] [address] 07/26/2023 09:41:11 07/27/2023 15:08:12 Initiation of depot contraception done 0187322709 85682 Z30.047 [id number] ELHAM ALDANA-BC [facility] [address] [place] [address] 08/10/2023 14:45:53 08/10/2023 15:38:02 Acute vaginitis 85499576 N76.0 Prediabetes 824041785 R7 3.03 A1C 5.7 03/28/2023 [id number] VIDHYA ANDRADE [facility] [address] [place] [address] 04/18/2024 09:34:51 04/18/2024 10:41:40 Vaginal discharge 558283093 N89.8 N76.0 Pt educated on exam findings, and discussed POC. Vaginal cx collected and sent. Discussed use of boric acid suppositor ies to help alleviate symptoms. 1 vaginal suppositor y at bedtime 3 nights in a row. Pt advised to avoid fragrant soaps/laun dry detergents , use of baking soda soaks, having partner change soaps, etc. Further POC pending lab result review. Unprotecte d sexual intercourse 4206789 Z72.51 [id number] Pt educated on importance of condom use for protection against STD's. Samples collected and sent. Further POC pending lab result review. Pt states understand ing of POC. Unprotecte d intercours e 2 days ago. LMP 03/30/2024. Advised patient it is too early to detect per LMP. Patient requesting to still run UPT. UPT in office negative. Advised patient she will need to come back in 2 weeks for repeat testing or can do home UPT in 2 weeks. Pt voices understand ing and is agreeable to POC. Health Concerns Section Related Observation LastModified by Organization Detai ls LastModified Time None Recorded Concern Status LastModified by Organization Details LastModified Time None Recorded Advance Directives Directive None Recorded Payers Insurance Date Sequence Insurance Name Policy Number Policy Turner Covered Member ID Turner Member ID Guarantor Name 01/04/2025 1 [facility] [id number] Todd Huerta [id number] Selene Huerta 03/28/2023 PAYMENT PLAN Selene Huerta Notes Date Note Type Note Provider Name and Address Organization Details Recorded Time 3 text/htm l Abnormal BleedingReported by PatientHPIFor quality, patient reportsheavybut reportspassing clots. For onset/timing, patient reportspast 2 cycles. Selene presents today for abnormal bleeding. Pt has been having bleeding after period that's been happening for the past 2 months. She has had no pain. Pt has no other concerns ROGELIO NEFF, ELHAM-BC [address] [facility], [place], [address], [facility] 03/28/2023 16:08:48 04/02/202 4 text/htm l Contraception visitReported by PatientContraceptionFor type of contraception, (wants to discuss).Sexual activityFor sexual history, patient reportssexually active.Menstral cycleFor menstrual cycle, patient reportsnormal menses. Kayleen Valenzuela CNM [address] [facility], [place], [address], [facility] IV 07/25/2023 13:54:50 4 text/htm l Vaginal DischargeReported by PatientHPIFor associated symptoms, patient reportsvaginal itchingandvaginal burning. For location, patient reportsvagina. For quality, patient reportswhite,frothy,cottage cheesy,yeast smell, andsweet smell. For severity, patient reportssevere. For duration, patient reports1 months. For onset/timing, patient reportsdaily. Selene is here for vaginal discharge. Pt states its been going on for about a month. Pt also states of states she has an itch and notices a foul/ sweet smell. No additional concerns. ROGELIO NEFF, ELHAM-BC [address] [facility], [place], [address], [facility] IV 08/10/2023 15:31:44 4 text/htm l ROS as noted in the HPI Pt reports an increase in vaginal discharge, itching and pain. No odor noted. Pt has noticed this for the past week. Pt declines STD screening via culture but no serum testing. Pt had unprotected sex and is worried about and is requesting a UPT. She states that her periods have been strange since she came off of the Depo. She is not late on her period but is no longer on BC. LUCIE NEWMAN, VIDHYA [address] [facility], [place], [address], [facility] 04/18/2024 10:01:52 OBGyn Episode No OBEpisode recorded.
--- OUTSIDE RECORDS SUMMARY | 2025-04-18 17:02 | XMS_ITS | Encounter Summary ---
Author Organization [facility] Healthcare Address [address] [place] [address] Care Team Providers Care Technical Architect Name Role Phone Chanel Gee DO Primary Care Provider [phone] Encounter Details Date Type Department Care Team (Late st Contact Info) Description 03/28/[address] [facility] Medical [facility] Family Medicine [address] [phone] Chanel Gee DO [address] [place] [id number] Social History Tobacco Use Types Packs/Day Years [...] Date Recorded PHQ-9 Total Score 4 02/04/2025 [place] Depression Scale Answer Date Recorded [place] Depression Scale Total 8 02/14/2025 The thought [...] on file Legal Sex Female 3:39 AM NICU RN Gender Identity Not on file Sexual Orientation Not on file documented as of this encounter Miscellaneous Notes * Telephone Encounter - Nata García - 03/28/2025 1:22 PM CST RN documented in this encounter Plan of Treatment Not on file documented as of this encounter Visit Diagnoses Not on filedocumented in this encounter Care Teams Technical Architect Relationship Specialty Start Date End Date Chanel Gee DO [address] [facility] [address] [place] [address] [place] [id number] PCP - General Family Medicine 12/17/24 documented as of this encounter
--- OUTSIDE RECORDS SUMMARY | 2025-04-18 17:02 | XMS_ITS | Clinical Summary ---
Author Organization [facility] Address [address] [place] [address] Care Team Providers Care Laser Specialist Name Role Phone None, Provider Primary Care Provider Unavaila ble Allergies No known active allergies Medications ondansetron (ZOFRAN-ODT) 4 MG disintegrating tablet Take 1 tablet (4 mg total) by mouth every 8 (eight) hours as needed. 15 tablet Active Encounters Date Type Department Care Team Description 01/18/2025 8:41 PM CDT - 01/19/2025 12:51 AM CDT Emergency [facility] [place] [address] Albertina Lira PA Vomiting Discharge Disposition: Home or Self Care (Routine Discharge) 01/18/2025 Travel from Last 3 Months Social History Tobacco Use Types Packs/Day Years Used Date Smoking Tobacco: Never Smokeless Tobacco: Never Tobacco Cessation:Counseling Given: Not Answered Comments Yes Sex and Gender Information Value Date Recorded Sex Assigned at Female 01/18/2025 8:31 PM CDT Legal Sex Female 11:22 PM [employer]PER[employer] Gender Identity Not on file Sexual Orientation Not on file Last Filed Vital Signs Vital Sign Reading Time Taken Comments Blood Pressure 118/83 01/18/2025 8:12 PM CDT Pulse 84 01/18/2025 8:12 PM CDT Temperature 36.1 C (97 F) 01/18/2025 8:12 PM CDT Respiratory Rate 16 01/18/2025 8:12 PM CDT Oxygen Saturation 99% 01/18/2025 8:12 PM CDT Inhaled Oxygen Concentration - - Weight 78.9 kg (173 lb 15.1 oz) 01/18/2025 8:12 PM CDT Height 157.5 cm (5' 2) 01/18/2025 8:12 PM CDT Body Mass Index 31.81 01/18/2025 8:12 PM CDT Plan of Treatment Health Maintenance Due Date Last Done Comments Cervical Cancer Screening Pap Smear (Age 21 to 29) Every 3 Years 2001 Cervical Cancer Screening 2001 Annual Physical 2004 HPV Vaccines (1 - 3-dose series) 2016 Hepatitis C 2019 COVID-19 Vaccine ( - season) 2024 Influenza Adult (#1) 2025 02/14/2023 DTaP, Tdap and Td Vaccines (8 - Td or Tdap) 11/04/2031 11/03/2021, 12/22/2012, 12/15/2006, Additional history exists RSV Immunization or 60+ Years (1 - 1-dose 75+ series) 2076 Hepatitis B Vaccines Completed 04/07/2002, 2001, 2001 Pneumococcal Vaccine: Pediatrics (0 to 5 Years) and At-Risk Patients (6 to 49 Years) Aged Out 07/10/2004 No longer eligible based on patient's age to complete this topic Meningococcal Vaccine Completed 01/15/2019, 013 Hepatitis A Vaccines Aged Out No long er eligible based on patient's age to complete this topic Meningococcal B Vaccine Aged Out No l onger eligible based on patient's age to complete this topic RSV Immunizations Under 20 Months Aged Out No longer eligible based on patient's age to complete this topic Procedures Procedure Name Priority Date/Time Associated Diagnosis Comments HC LIPASE STAT 01/18/2025 9:00 PM CDT HC MAGNESIUM STAT 01/18/2025 9:00 PM CDT HC HCG QN STAT 01/18/2025 9:00 PM CDT HC URINALYSIS AUTO W/O MICRO STAT 01/18/2025 9:00 PM CDT HC COMPREHENSIVE METABOLIC PANEL STAT 01/18/2025 9:00 PM CDT HC CBC AUTO W/AUTO DIFF STAT 01/18/2025 9:00 PM CDT from Last 3 Months Results * (ABNORMAL) URINALYSIS (01/18/2025 9:00 PM CDT) SPECIMEN TYPE URINE CLEAN CATCH 01/18/2025 9:00 PM CDT [facility] COLOR (U) YELLOW 01/18/2025 9:21 PM CDT [facility] TRANSPARENCY CLEAR 01/18/2025 9:21 PM CDT [facility] SPECIFIC GRAVITY (U) 1.033(H) 1.001 - 1.030 01/18/2025 9:21 PM CDT [facility] U PH 6.0 5.0 - 9.0 01/18/2025 9:21 PM CDT [facility] LEUKOCYTES (U) NEGATIVE NEGATIVE 01/18/2025 9:21 PM CDT [facility] NITRITES NEGATIVE NEGATIVE 01/18/2025 9:21 PM CDT [facility] PROTEIN RANDOM (U) 30(H) <30 MG/DL 01/18/2025 9:21 PM CDT [facility] GLUCOSE (U) NORMAL NORMAL MG/DL 01/18/2025 9:21 PM CDT [facility] KETONES MG/DL (U) >150(A) NEGATIVE MG/DL 01/18/2025 9:21 PM CDT [facility] UROBILINOGEN 2.0(A) NORMAL MG/DL 01/18/2025 9:21 PM CDT [facility] BILIRUBIN (U) NEGATIVE NEGATIVE MG/DL 01/18/2025 9:21 PM CDT [facility] BLOOD (U) NEGATIVE NEGATIVE 01/18/2025 9:21 PM CDT [facility] MUCUS MANY /LPF 01/18/2025 9:21 PM CDT [facility] WBC/HPF 1 <6 /HPF 01/18/2025 9:21 PM CDT [facility] RBC/HPF 5 <6 /HPF 01/18/2025 9:21 PM CDT [facility] SQUAMOUS EPITHELIALS FEW /HPF 01/18/2025 9:21 PM CDT [facility] URINE SPECIMEN OBTAINED BY CLEAN CATCH PROCEDURE / Unknown 01/18/2025 9:00 PM CDT us Albertina MARS URINE ORDERABLES Final Result [facility] [address] [place] [address], [place] [phone] * (ABNORMAL) COMPREHENSIVE METABOLIC PANEL (01/18/2025 9:00 PM CDT) GLUCOSE 84 70 - 99 MG/DL 01/18/2025 10:16 PM CDT [facility] BUN 7 7 - 18 MG/DL 01/18/2025 10:16 PM CDT [facility] CREATININE S/P/B 0.60 0.55 - 1.02 MG/DL 01/18/2025 10:16 PM CDT [facility] SODIUM S/P/B 135(L) 136 - 145 MMOL/L 01/18/2025 10:16 PM CDT [facility] POTASSIUM S/P/B 3.6 3.5 - 5.1 MMOL/L 01/18/2025 10:16 PM CDT [facility] CHLORIDE S/P/B 103 97 - 115 MMOL/L 01/18/2025 10:16 PM CDT [facility] CO2 23.6 21 - 32 MMOL/L 01/18/2025 10:16 PM CDT [facility] CALCIUM S/P/B 9.5 8.5 - 10.1 MG/DL 01/18/2025 10:16 PM T [facility] BILIRUBIN TOTAL S/P/B 0.9 0.2 - 1.2 MG/DL 01/18/2025 10:16 PM CDT [facility] Comment: THIS ASSAY IS NOT RECOMMENDED FOR PATIENTS UNDERGOING TREATMENT WITH ELTROMBOPAG DUE TO THE POTENTIAL FOR FALSELY ELEVATED RESULTS. TOTAL PROTEIN S/P/B 8.5(H) 6.4 - 8.2 G/DL 01/18/2025 10:16 PM T [facility] ALBUMIN S/P/B 4.3 3.4 - 5.0 G/DL 01/18/2025 10:16 PM T [facility] AST 19 15 - 37 U/L 01/18/2025 10:16 PM CDT [facility] ALT 40 14 - 55 U/L 01/18/2025 10:16 PM T [facility] ALKALINE PHOSPHATASE S/P/B 86 50 - 136 U/L 01/18/2025 10:16 PM T [facility] ANION GAP 8.4 2 - 10 MMOL/L 01/18/2025 10:16 PM T [facility] BUN CREATININE RATIO 11.7 6 - 26 01/18/2025 10:16 PM T [facility] A/G RATIO 1.0 1.0 - 2.0 RATIO 01/18/2025 10:16 PM T [facility] GFR ESTIMATE >90 >90 ML/MIN/1.7 3 M2 01/18/2025 10:16 PM T [facility] Comment: NOTE: eGFR is not calculated for patients <18 years of age or gender unknown. This is an estimated GFR calculation using the new CKD EPI creatinine equation without race and so does not require a correction factor for race. This estimated GFR should not be used for calculating drug doses. 01/18/2025 9:00 PM CDT Albertina MARS LABORATORY Final Result Performing Organization Address [facility] Co de Phone Number [facility] [address] [place] [address], [place] [phone] * Quantitative HCG (01/18/2025 9:00 PM CDT) Pathologist [facility] HCG QUANTITATIVE [phone] MIU/ML 01/19/20 10:22 PM CDT [facility] Comment: WEEKS OF REFERENCE RANGES Non- female < or = 2 0.2 - 1 5 - 50 1 - 2 50 - 500 2 - 3 100 - 5000 3 - 4 500 - 10,000 4 - 5 1000 - 50,000 5 - 6 10,000 - 100,000 6 - 8 15,000 - 200,000 2 - 3 MONTHS 10,000 - 100,000 01/18/2025 9:00 PM CDT Albertina MARS LABORATORY Final Result Performing Organization Address [facility] Co de Phone Number [facility] [address] [place] [address], [place] [phone] * (ABNORMAL) CBC W/DIFF AUTOMATED (01/18/2025 9:00 PM CDT) WBC 7.75 4.5 - 11.0 x10'3/uL 01/18/2025 9:46 PM CDT [facility] RBC 4.82 4.20 - 5.40 x10'6/uL 01/18/2025 9:46 PM CDT [facility] HGB 13.1 12.0 - 16.0 G/DL 01/18/2025 9:46 PM CDT [facility] HCT 39.4 38.0 - 48.0 % 01/18/2025 9:46 PM CDT [facility] MCV 81.7 81.0 - 99.0 FL 01/18/2025 9:46 PM CDT [facility] MCH 27.2 27.0 - 31.0 PG 01/18/2025 9:46 PM CDT [facility] MCHC 33.2 32.0 - 36.0 G/DL 01/18/2025 9:46 PM CDT [facility] RDW 17.9(H) 11.5 - 14.5 % 01/18/2025 9:46 PM CDT [facility] PLT 218 130 - 400 x10'3/uL 01/18/2025 9:46 PM CDT [facility] MPV 13.2(H) 9.3 - 12.2 FL 01/18/2025 9:46 PM CDT [facility] DIFFERENTIAL TYPE AUTOMATED DIFFERENTIAL 01/18/2025 9:47 PM CDT [facility] NEUTROPHILS % 72.9 % 01/18/2025 9:47 PM CDT [facility] LYMPHOCYTES % 19.0 % 01/18/2025 9:47 PM CDT [facility] MONOCYTES % 6.2 % 01/18/2025 9:47 PM CDT [facility] EOSINOPHILS 0.4 % 01/18/2025 9:47 PM CDT [facility] BASOPHILS 1.0 % 01/18/2025 9:47 PM CDT [facility] IMMATURE GRANS % 0.5 % 01/19/20 9:47 PM CDT [facility] ABS. NEUTROPHILS 5.65 1.80 - 7.70 x10'3/uL 01/18/2025 9:47 PM CDT [facility] ABS. LYMPHOCYTES 1.47 1.00 - 4.80 x10'3/uL 01/18/2025 9:47 PM CDT [facility] ABS. MONOCYTES 0.48 0.24 - 0.86 x10'3/uL 01/18/2025 9:47 PM CDT [facility] ABS. EOSINOPHILS 0.03(L) 0.04 - 0.36 x10'3/uL 01/18/2025 9:47 PM CDT [facility] ABS. BASOPHILS 0.08 0.01 - 0.08 x10'3/uL 01/18/2025 9:47 PM CDT [facility] ABS. IMMATURE GRANULOCYTES 0.04 0.00 - 0.49 x10'3/uL 01/18/2025 9:47 PM CDT [facility] 01/18/2025 9:00 PM CDT Albertina MARS LABORATORY Final Result [facility] [address] [place] [address], * MAGNESIUM (01/18/2025 9:00 PM CDT) MAGNESIUM 1.9 1.8 - 2.4 MG/DL 01/18/2025 10:16 PM CDT [facility] 01/18/2025 9:00 PM CDT Albertina MARS LABORATORY Final Result [facility] [address] [place] [address], [place] [phone] * LIPASE (01/18/2025 9:00 PM CDT) LIPASE 15 13 - 75 UNITS/L 01/18/2025 10:16 PM CDT [facility] 01/18/2025 9:00 PM CDT Albertina MARS LABORATORY Final Result Performing Organization Address [facility] Co de Phone Number [facility] [address] [place] [address], [place] [phone] from Last 3 Months Insurance [facility] Care Teams Laser Specialist Relationship Specialty Start Date End Date None, Provider, MD PCP - General UNKNOWN PHYSICIAN SPECIALTY 01/18/25
--- NOTE | 2025-04-18 17:21 | OBADM ---
This patient, Selene Huerta, admitted to the OB room OB Post 115 for observation. Patient/family oriented to hospital policies and general routines including ID bracelet, bed and alarms, visiting hours, pain management, procedures, bathroom and other care routines, personal items, smoking policy, room service/diet, and visiting hours. Patient/Family are encouraged to report perceived risks to care and to ask questions if they do not understand what they are told or what they should do.
--- NOTE | 2025-04-22 07:34 | PM.OBTRLD ---
OB - Triage/Final Diagnosis Visit Information Reason for evaluation: other (spotting) Comments/Additional reasons for admission: I have assessed the risk for this patient, Selene Huerta, and determined that she would benefit from observation care.
== END 2025-04-18 18:35 | disposition home or self-care (01) ==
PROVIDERS: Admitting Provider Obstetrics & Gynecology Gynecology; Visit Provider Obstetrics & Gynecology Gynecology
DX: O26.852 Spotting complicating pregnancy, second trimester (principal); Z3A.20 20 weeks gestation of pregnancy
CPT/HCPCS: G0378; G0379